=== PATIENT | female | born 1960 | race African-American/Black ===

== ENCOUNTER 2016-12-12 18:30 | Inpatient (IN) | payer OTHER ==
[2016-12-12 19:23] VITALS: BMI 18.6
--- NOTE | 2016-12-12 21:05 | HP ---
Admission [facility] Chief Complaint: C/O COCAINE DEPENDENCE SEEKING REHAB TXMENT Allergies/Adverse Reactions: Allergies Allergy/AdvReac Type Severity Reaction Status Date / Time No Known Allergies Allergy Verified 09/06/15 16:24 History of Present Illness: 56 Y.O. FEMALE WITH LONG H/O OF COCAINE DEPENDENCE ADMITTED TO REHAB. CLIENT IS KNOWN TO [facility]. LAST HERE OVER A YEAR AGO. SELF REFERRED. DENIES ANY SIGNIFICANT PERIOD OF CLEAN TIME. ELVATED B/P NOTED 206/108 REPEAT 197/100. STATES DID NOT TAKE HER MEDS TODAY. C/O MILD AMBROCIO. DENIES C.P., VISUALL DISTURBANCES, SOB AT PRESENT TIME.CLIENT SELF MEDICATED IN THE PRESENCE OF BILLING COORDINATOR WITH HER MEDS TO INCLUDE ANTIHYPERTENSIVES. WILL CONT TO MONITOR CLOSELY Exam Limitations: No Limitations - Ebola screening Have you traveled outside of the country in the last 21 days: No Have you had contact with anyone from an Ebola affected area: No Have you been sick,other than usual withdrawal symptoms: No Do you have a fever: No - Review of Systems Constitutional: Chills, Loss of Appetite, Malaise, Night Sweats, Changes in sleep, Unintentional Wgt. Loss EENT: reports: No Symptoms Reported Respiratory: reports: Other (H/O ASTHMA) Cardiac: reports: No Symptoms Reported GI: reports: Poor Appetite : reports: No Symptoms Reported Musculoskeletal: reports: Neck Pain Integumentary: reports: No Symptoms Reported Neuro: reports: No Symptoms reported Endocrine: reports: No Symptoms Reported Hematology: reports: No Symptoms Reported Psychiatric: reports: Anxious Other Systems: Reviewed and Negative Patient History - Patient Medical History Hx Anemia: No Hx Asthma: Yes (ALBUTEROL) Hx Chronic Obstructive Pulmonary Disease (COPD): No Hx Cancer: No Hx Cardiac Disorders: No Hx Congestive Heart Failure: No Hx Hypertension: Yes (ON MEDS) Hx Hypercholesterolemia: No Hx Pacemaker: No HX Cerebrovascular Accident: No Hx Seizures: No Hx Dementia: No Hx Diabetes: No Hx Gastrointestinal Disorders: No Hx Liver Disease: No Hx Genitourinary Disorders: No Hx Sexually Transmitted Disorders: No Hx Renal Disease (ESRD): No Hx Thyroid Disease: No Hx Human Immunodeficiency Virus (HIV): Yes (diagnosed 1997,NON COMPLAINT WITH MEDS, SHINGLES IN 2013) Hx Hepatitis C: No Hx Depression: Yes (NO MEDS) Hx Suicide Attempt: Yes (PRESENTLY DENIES) Hx Bipolar Disorder: No Hx Schizophrenia: No Other Medical History: DENIES - Patient Surgical History Past Surgical History: Yes Hx Neurologic Surgery: No Hx Cataract Extraction: No Hx Cardiac Surgery: No Hx Lung Surgery: No Hx Breast Surgery: Yes (Cyst removal on right breast 1979) Hx Breast Biopsy: No Hx Abdominal Surgery: No Hx Appendectomy: No Hx Cholecystectomy: No Hx Genitourinary Surgery: No Hx Section: No Hx Orthopedic Surgery: No Anesthesia Reaction: No - PPD History Previous Implant?: Yes Documented Results: Negative w/proof Implanted On Prior [facility] Admission?: Yes Date: 09/08/15 Results: 0mm PPD to be Administered?: Yes - Reproductive History Patient is a Female of Child Bearing Age (11 -55 yrs old): Yes Last Menstrual Period: 02/21/10 Patient : No ([facility] [place]) - Smoking Cessation Smoking history: Current every day smoker Have you smoked in the past 12 months: Yes Aproximately how many cigarettes per day: 10 Hx Chewing Tobacco Use: No Initiated information on smoking cessation: Yes 'Breaking Loose' booklet given: 12/12/16 - Substance & Tx. History Hx Alcohol Use: No Hx Substance Use: Yes Substance Use Type: Cocaine Hx Substance Use Treatment: Yes ([facility]) - Substances Abused CRACK/COCAINE Route: Smoking Frequency: Daily Amount used: $200 Age of first use: 21 Date of Last Use: 12/12/16 Family Disease History - Family Disease History Family Disease History: Other: Father (/ ALCOHOLISM), Mother (/ ALCOHOLISM) Admission Physical Exam S - Vital Signs Vital Signs: Vital Signs - 24 hr 12/12/16 19:19 Temperature 97.3 F L Pulse Rate 81 Respiratory 18 Rate Blood Pressure 206/108 - Physical General Appearance: Yes: Appropriately Dressed, Thin, Anxious HEENTM: Yes: EOMI, Normocephalic, CAROLA, Pharynx Normal, Other (EDENTULOUS) Respiratory: Yes: Chest Non-Tender, No Respiratory Distress, No Accessory Muscle Use, Wheezing Neck: Yes: No masses,lesions,Nodules, Supple, Trachea in good position Breast: Yes: Breast Exam Deferred Cardiology: Yes: Regular Rhythm, Regular Rate, S1, S2 Abdominal: Yes: Normal Bowel Sounds, Non Tender, Soft Genitourinary: Yes: Within Normal Limits Back: Yes: Normal Inspection Musculoskeletal: Yes: full range of Motion, Gait Steady Extremities: Yes: Normal Capillary Refill, Normal Inspection, Normal Range of Motion, Non-Tender Neurological: Yes: processing mgr II-XII NML intact, Fully Oriented, Alert, Motor Strength 5/5 Integumentary: Yes: Normal Color, Dry, Warm Lymphatic: Yes: Within Normal Limits - Diagnostic (1) Cocaine dependence Current Visit: Yes Status: Chronic Qualifiers: Substance use status: uncomplicated Qualified Code(s): F14.20 - Cocaine dependence, uncomplicated (2) HIV disease Current Visit: Yes Status: Chronic (3) HTN (hypertension) Current Visit: Yes Status: Chronic Qualifiers: Hypertension type: essential hypertension Qualified Code(s): I10 - Essential (primary) hypertension (4) Nicotine dependence Current Visit: Yes Status: Chronic Qualifiers: Nicotine product type: cigarettes Substance use status: uncomplicated Qualified Code(s): F17.210 - Nicotine dependence, cigarettes, uncomplicated (5) Asthma Current Visit: Yes Status: Chronic Cleared for Admission [facility] - Detox or Rehab Detox Regimen/Protocol: Not Applicable Claeared for Rehab Admission: Yes [facility] Breath Alcohol Content Breath Alcohol Content: 0 Urine Pregancy Test - Result Urine Test Results: Negative- NO Line Present Urine Drug Screen - Results Drug Screen Negative: No Urine Drug Screen Results: ANTONIO-Cocaine
[2016-12-12] MEDS ORDERED: NICOTINE POLACRILEX 2 MG GUM BUC PRN (21:20)
[2016-12-12] MEDS ORDERED: MENTHOL/PHENOL 1 EACH UD MM PRN (21:20)
[2016-12-12] MEDS ORDERED: MAGNESIUM CITRATE 300 ML BOTTLE PO PRN (21:20)
[2016-12-12] MEDS ORDERED: ACETAMINOPHEN 325 MG TABLET (FP) PO PRN (21:20)
[2016-12-12] MEDS ORDERED: guaiFENesin/D-METHORPHAN HB 10 ML UNIT-DOSE CUPS PO PRN (21:20)
[2016-12-12] MEDS ORDERED: hydrOXYzine PAMOATE 50 MG CAPSULE (FP) PO PRN (21:20)
[2016-12-12] MEDS ORDERED: MAGNESIUM HYDROX 2400MG/30ML ORAL SUSPENSION 30 ML CUP PO PRN (21:20)
[2016-12-12] MEDS ORDERED: MAG HYDROX/AL HYDROX/SIMETH 30 ML UNIT-DOSE CUP PO PRN (21:20)
[2016-12-12] MEDS ORDERED: P-EPHED 60MG/TRIPROLIDI 2.5MG TABLET PO PRN (21:20)
[2016-12-12] MEDS ORDERED: diphenhydrAMINE HCL 50 MG CAPSULE PO PRN (21:20)
[2016-12-12] MEDS ORDERED: IBUPROFEN 400 MG TABLET (FP) PO PRN (21:20)
[2016-12-12] MEDS ORDERED: LOPERAMIDE HCL 2 MG CAPSULE PO PRN (21:20)
[2016-12-12] MEDS ORDERED: ALBUTEROL SO4 6.7 GM HFA INHALER IH PRN (21:24)
[2016-12-12] MEDS ORDERED: TUBERCULIN PPD 5 TU/0.1ML VIAL ID ONE (22:56)
[2016-12-12] MEDS: NICOTINE 14 MG/24 HOURS TOPICAL PATCH TD SCH (23:25)
[2016-12-12] MEDS: THIAMINE HCL 100 MG TABLET (FP) PO SCH (23:28)
[2016-12-13] MEDS: ASPIRIN COATED 81 MG TABLET.EC PO SCH (09:06)
[2016-12-13] MEDS: DARUNAVIR ETHANOLATE 800 MG TAB PO SCH (09:06)
[2016-12-13] MEDS: PRENATAL VITAMINS W/ FOLIC ACID TABLET (FP) PO SCH (09:07)
[2016-12-13] MEDS: NIFEdipine E.R. 90 MG TABLET (FP) PO SCH (09:07)
[2016-12-13] MEDS: NICOTINE 14 MG/24 HOURS TOPICAL PATCH TD SCH (09:07)
[2016-12-13] MEDS: LISINOPRIL 20 MG TABLET (FP) PO SCH (09:07)
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
[2016-12-13 10:14] LABS: MCH 28.6 pg (25.7-33.7); MCHC 32.9 g/dl (32.0-36.0); MEAN CELL VOLUME 86.8 fl (80-96); MEAN PLT VOLUME 9.2 fl (7.5-11.1); PLATELET COUNT 232 K/MM3 (134-434); RDW 14.5 % (11.6-15.6); WHITE BLOOD COUNT 5.2 K/mm3 (4.0-10.0)
[2016-12-13] MEDS: EMTRICITABINE 200MG/TENOFOVIR 300MG PO SCH (10:15)
[2016-12-13] MEDS: CITALOPRAM HYDROBROMIDE 10 MG TABLET (FP) PO SCH (10:16)
[2016-12-13] MEDS: RITONAVIR 100 MG TABLET PO SCH (10:16)
[2016-12-13] MEDS: ATENOLOL 50 MG TABLET (FP) PO SCH (10:16)
[2016-12-13 10:51] LABS: ALBUMIN 3.5 g/dl (3.4-5.0); ANION GAP 8 (8-16); CALCIUM 8.8 mg/dL (8.5-10.1); CO2 29 mmol/L (21-32); GLUCOSE,RANDOM 85 mg/dL (74-106)
[2016-12-13 10:54] LABS: ALK PHOS 88 U/L (45-117); BILIRUBIN,TOTAL 0.5 mg/dL (0.2-1.0); CREATININE 0.6 mg/dL (0.55-1.02); SGOT/AST 11 U/L (15-37); SGPT/ALT 19 U/L (12-78); TOT PROT 7.6 g/dl (6.4-8.2)
[2016-12-13 14:28] LABS: URINE APPEARANCE CLEAR; URINE BILIRUBIN NEGATIVE (NEGATIVE); URINE COLOR LTYELLOW; URINE GLUCOSE (UA) NEGATIVE (NEGATIVE); URINE KETONE NEGATIVE (NEGATIVE); URINE LEUK ESTERASE NEGATIVE (NEGATIVE); URINE NITRITE NEGATIVE (NEGATIVE); URINE PROTEIN NEGATIVE (NEGATIVE); URINE UROBILINOGEN NEGATIVE E.U./dl (0.2-1.0)
[2016-12-13 14:29] LABS: URINE BLOOD 1+ (NEGATIVE)
[2016-12-13 14:33] LABS: URINE RBC 2 /hpf (0-3); URINE WBC 1 /hpf (3-5)
--- NOTE | 2016-12-13 15:52 | EKG ---
Test Reason : Blood Pressure : / mmHG Vent. Rate : 058 BPM Atrial Rate : 058 BPM P-R Int : 150 ms QRS Dur : 084 ms QT Int : 474 ms P-R-T Axes : 071 053 048 degrees QTc Int : 465 ms SINUS BRADYCARDIA POSSIBLE LEFT ATRIAL ENLARGEMENT SEPTAL INFARCT , AGE UNDETERMINED ABNORMAL ECG NO PREVIOUS ECGS AVAILABLE Confirmed by TIM OLEARY MD ([id number]) on 12/13/2016 3:51:28 PM Referred By: Confirmed By:TIM OLEARY MD
[2016-12-13] MEDS: QUEtiapine FUMARATE 100 MG TABLET (FP) PO SCH (21:14)
[2016-12-13] MEDS: THIAMINE HCL 100 MG TABLET (FP) PO SCH (21:14)
[2016-12-14] MEDS ORDERED: PT OWN MED DRAWER 7, Y5N ONE (09:29)
[2016-12-14] MEDS: EMTRICITABINE 200MG/TENOFOVIR 300MG PO SCH (09:54)
[2016-12-14] MEDS: RITONAVIR 100 MG TABLET PO SCH (09:54)
[2016-12-14] MEDS: PRENATAL VITAMINS W/ FOLIC ACID TABLET (FP) PO SCH (09:55)
[2016-12-14] MEDS: DARUNAVIR ETHANOLATE 800 MG TAB PO SCH (09:55)
[2016-12-14] MEDS: CITALOPRAM HYDROBROMIDE 10 MG TABLET (FP) PO SCH (09:56)
[2016-12-14] MEDS: ASPIRIN COATED 81 MG TABLET.EC PO SCH (09:56)
[2016-12-14] MEDS: LISINOPRIL 20 MG TABLET (FP) PO SCH (09:57)
[2016-12-14] MEDS: ATENOLOL 50 MG TABLET (FP) PO SCH (09:57)
[2016-12-14] MEDS: NIFEdipine E.R. 90 MG TABLET (FP) PO SCH (09:57)
[2016-12-14] MEDS: NICOTINE 14 MG/24 HOURS TOPICAL PATCH TD SCH (09:58)
[2016-12-14] MEDS ORDERED: POTASSIUM CHLORIDE TABS 20 MEQ TABLET.ER (FP) PO ONE (15:07)
[2016-12-14] MEDS: POTASSIUM CHLORIDE TABS 20 MEQ TABLET.ER (FP) PO SCH (21:31)
[2016-12-14] MEDS: THIAMINE HCL 100 MG TABLET (FP) PO SCH (21:31)
[2016-12-14] MEDS: QUEtiapine FUMARATE 100 MG TABLET (FP) PO SCH (21:32)
[2016-12-15] MEDS ORDERED: PT OWN MED DRAWER 7, Y5N ONE (09:09)
[2016-12-15] MEDS: EMTRICITABINE 200MG/TENOFOVIR 300MG PO SCH (09:38)
[2016-12-15] MEDS: RITONAVIR 100 MG TABLET PO SCH (09:38)
[2016-12-15] MEDS: DARUNAVIR ETHANOLATE 800 MG TAB PO SCH (09:38)
[2016-12-15] MEDS: POTASSIUM CHLORIDE TABS 20 MEQ TABLET.ER (FP) PO SCH ×2 (09:39→21:20)
[2016-12-15] MEDS: ATENOLOL 50 MG TABLET (FP) PO SCH (09:39)
[2016-12-15] MEDS: PRENATAL VITAMINS W/ FOLIC ACID TABLET (FP) PO SCH (09:39)
[2016-12-15] MEDS: ASPIRIN COATED 81 MG TABLET.EC PO SCH (09:39)
[2016-12-15] MEDS: NIFEdipine E.R. 90 MG TABLET (FP) PO SCH (09:39)
[2016-12-15] MEDS: CITALOPRAM HYDROBROMIDE 10 MG TABLET (FP) PO SCH (09:39)
[2016-12-15] MEDS: NICOTINE 14 MG/24 HOURS TOPICAL PATCH TD SCH (09:40)
[2016-12-15] MEDS: LISINOPRIL 20 MG TABLET (FP) PO SCH (09:40)
[2016-12-15] MEDS: THIAMINE HCL 100 MG TABLET (FP) PO SCH (21:19)
[2016-12-15] MEDS: QUEtiapine FUMARATE 100 MG TABLET (FP) PO SCH (21:19)
[2016-12-16] MEDS ORDERED: PT OWN MED DRAWER 7, Y5N ONE ×2 (08:55→23:21)
[2016-12-16] MEDS: CITALOPRAM HYDROBROMIDE 10 MG TABLET (FP) PO SCH (09:42)
[2016-12-16] MEDS: PRENATAL VITAMINS W/ FOLIC ACID TABLET (FP) PO SCH (09:42)
[2016-12-16] MEDS: NIFEdipine E.R. 90 MG TABLET (FP) PO SCH (09:42)
[2016-12-16] MEDS: POTASSIUM CHLORIDE TABS 20 MEQ TABLET.ER (FP) PO SCH ×2 (09:42→21:18)
[2016-12-16] MEDS: EMTRICITABINE 200MG/TENOFOVIR 300MG PO SCH (09:43)
[2016-12-16] MEDS: ATENOLOL 50 MG TABLET (FP) PO SCH (09:43)
[2016-12-16] MEDS: LISINOPRIL 20 MG TABLET (FP) PO SCH (09:43)
[2016-12-16] MEDS: ASPIRIN COATED 81 MG TABLET.EC PO SCH (09:43)
[2016-12-16] MEDS: DARUNAVIR ETHANOLATE 800 MG TAB PO SCH (09:43)
[2016-12-16] MEDS: RITONAVIR 100 MG TABLET PO SCH (09:43)
[2016-12-16] MEDS: NICOTINE 14 MG/24 HOURS TOPICAL PATCH TD SCH (09:44)
[2016-12-16] MEDS: THIAMINE HCL 100 MG TABLET (FP) PO SCH (21:18)
[2016-12-16] MEDS: QUEtiapine FUMARATE 100 MG TABLET (FP) PO SCH (21:18)
[2016-12-17] MEDS: CITALOPRAM HYDROBROMIDE 10 MG TABLET (FP) PO SCH (09:46)
[2016-12-17] MEDS: PRENATAL VITAMINS W/ FOLIC ACID TABLET (FP) PO SCH (09:46)
[2016-12-17] MEDS: ATENOLOL 50 MG TABLET (FP) PO SCH (09:46)
[2016-12-17] MEDS: LISINOPRIL 20 MG TABLET (FP) PO SCH (09:46)
[2016-12-17] MEDS: DARUNAVIR ETHANOLATE 800 MG TAB PO SCH (09:46)
[2016-12-17] MEDS: ASPIRIN COATED 81 MG TABLET.EC PO SCH (09:46)
[2016-12-17] MEDS: NIFEdipine E.R. 90 MG TABLET (FP) PO SCH (09:46)
[2016-12-17] MEDS: EMTRICITABINE 200MG/TENOFOVIR 300MG PO SCH (09:47)
[2016-12-17] MEDS: RITONAVIR 100 MG TABLET PO SCH (09:47)
[2016-12-17] MEDS: NICOTINE 14 MG/24 HOURS TOPICAL PATCH TD SCH (09:47)
[2016-12-17] MEDS: POTASSIUM CHLORIDE TABS 20 MEQ TABLET.ER (FP) PO SCH ×2 (09:49→21:17)
[2016-12-17] MEDS: THIAMINE HCL 100 MG TABLET (FP) PO SCH (21:17)
[2016-12-17] MEDS: QUEtiapine FUMARATE 100 MG TABLET (FP) PO SCH (21:17)
[2016-12-18] MEDS ORDERED: PT OWN MED DRAWER 7, Y5N ONE (08:26)
[2016-12-18] MEDS: EMTRICITABINE 200MG/TENOFOVIR 300MG PO SCH (10:20)
[2016-12-18] MEDS: PRENATAL VITAMINS W/ FOLIC ACID TABLET (FP) PO SCH (10:20)
[2016-12-18] MEDS: POTASSIUM CHLORIDE TABS 20 MEQ TABLET.ER (FP) PO SCH ×2 (10:20→21:12)
[2016-12-18] MEDS: DARUNAVIR ETHANOLATE 800 MG TAB PO SCH (10:20)
[2016-12-18] MEDS: RITONAVIR 100 MG TABLET PO SCH (10:20)
[2016-12-18] MEDS: NIFEdipine E.R. 90 MG TABLET (FP) PO SCH (10:20)
[2016-12-18] MEDS: ATENOLOL 50 MG TABLET (FP) PO SCH (10:21)
[2016-12-18] MEDS: ASPIRIN COATED 81 MG TABLET.EC PO SCH (10:21)
[2016-12-18] MEDS: CITALOPRAM HYDROBROMIDE 10 MG TABLET (FP) PO SCH (10:21)
[2016-12-18] MEDS: NICOTINE 14 MG/24 HOURS TOPICAL PATCH TD SCH (10:22)
[2016-12-18] MEDS: LISINOPRIL 20 MG TABLET (FP) PO SCH (10:22)
[2016-12-18] MEDS: THIAMINE HCL 100 MG TABLET (FP) PO SCH (21:12)
[2016-12-18] MEDS: QUEtiapine FUMARATE 100 MG TABLET (FP) PO SCH (21:12)
[2016-12-19] MEDS: DARUNAVIR ETHANOLATE 800 MG TAB PO SCH (10:06)
[2016-12-19] MEDS: ASPIRIN COATED 81 MG TABLET.EC PO SCH (10:06)
[2016-12-19] MEDS: CITALOPRAM HYDROBROMIDE 10 MG TABLET (FP) PO SCH (10:06)
[2016-12-19] MEDS: PRENATAL VITAMINS W/ FOLIC ACID TABLET (FP) PO SCH (10:06)
[2016-12-19] MEDS: ATENOLOL 50 MG TABLET (FP) PO SCH (10:07)
[2016-12-19] MEDS: EMTRICITABINE 200MG/TENOFOVIR 300MG PO SCH (10:07)
[2016-12-19] MEDS: RITONAVIR 100 MG TABLET PO SCH (10:07)
[2016-12-19] MEDS: POTASSIUM CHLORIDE TABS 20 MEQ TABLET.ER (FP) PO SCH ×2 (10:07→21:15)
[2016-12-19] MEDS: LISINOPRIL 20 MG TABLET (FP) PO SCH (10:07)
[2016-12-19] MEDS: NIFEdipine E.R. 90 MG TABLET (FP) PO SCH (10:07)
[2016-12-19] MEDS: NICOTINE 14 MG/24 HOURS TOPICAL PATCH TD SCH (10:07)
[2016-12-19] MEDS: THIAMINE HCL 100 MG TABLET (FP) PO SCH (21:15)
[2016-12-19] MEDS: QUEtiapine FUMARATE 100 MG TABLET (FP) PO SCH (21:15)
[2016-12-20 06:26] VITALS: TEMP 97.6
[2016-12-20] MEDS ORDERED: PT OWN MED DRAWER 7, Y5N ONE (08:34)
[2016-12-20] MEDS: DARUNAVIR ETHANOLATE 800 MG TAB PO SCH (09:59)
[2016-12-20] MEDS: POTASSIUM CHLORIDE TABS 20 MEQ TABLET.ER (FP) PO SCH (10:00)
[2016-12-20] MEDS: RITONAVIR 100 MG TABLET PO SCH (10:00)
[2016-12-20] MEDS: EMTRICITABINE 200MG/TENOFOVIR 300MG PO SCH (10:00)
[2016-12-20] MEDS: CITALOPRAM HYDROBROMIDE 10 MG TABLET (FP) PO SCH (10:00)
[2016-12-20] MEDS: ASPIRIN COATED 81 MG TABLET.EC PO SCH (10:00)
[2016-12-20] MEDS: NIFEdipine E.R. 90 MG TABLET (FP) PO SCH (10:01)
[2016-12-20] MEDS: LISINOPRIL 20 MG TABLET (FP) PO SCH (10:01)
[2016-12-20] MEDS: PRENATAL VITAMINS W/ FOLIC ACID TABLET (FP) PO SCH (10:01)
[2016-12-20] MEDS: ATENOLOL 50 MG TABLET (FP) PO SCH (10:01)
[2016-12-20] MEDS: NICOTINE 14 MG/24 HOURS TOPICAL PATCH TD SCH (10:01)
[2016-12-20 10:24] VITALS: BP 120/71; PULSE 76
--- NOTE | 2016-12-20 10:41 | PN ---
Psychiatric Progress Note Vital Signs: Vital Signs Period Temp Pulse Resp BP Sys/Young Pulse Ox Last 24 Hr 97.6 F 70-76 16-18 105-120/65-71 Date of Session: 12/20/16 Chief Complaint:: discharge visit HPI: Patient has addressed cannabis, cocaine, nicotine dependence comrbid MDD, severe with psychotic features. ROS: HIV+ dx in 1997, HTN, BA medically managed. Current Medications: Active Medications Generic Name Dose Route Start Last Admin Trade Name Freq PRN Reason Stop Dose Admin Acetaminophen 650 mg 12/12/16 21:20 Tylenol - PO Q4H PRN PAIN Al Hydroxide/Mg Hydroxide 30 ml 12/12/16 21:20 Mylanta Oral Suspension - PO Q6H PRN DYSPEPSIA Albuterol Sulfate 2 puff 12/12/16 21:24 Ventolin Hfa Inhaler - IH Q4H PRN SHORT OF BREATH/WHEEZING Aspirin 81 mg 12/13/16 10:00 12/20/16 10:00 Ecotrin - PO 81 mg DAILY CARLOS Administration Atenolol 50 mg 12/13/16 10:00 12/20/16 10:01 Tenormin - PO 50 mg DAILY CARLOS Administration Citalopram Hydrobromide 10 mg 12/13/16 10:00 12/20/16 10:00 Celexa - PO 10 mg DAILY CARLOS Administration Darunavir 800 mg 12/13/16 10:00 12/20/16 09:59 Prezista - PO 800 mg DAILY CARLOS Administration Diphenhydramine HCl 50 mg 12/12/16 21:20 12/17/16 21:17 Benadryl - PO 50 mg HSMR1 PRN Administration INSOMNIA Emtricitabine/Tenofovir 1 tab 12/13/16 10:00 12/20/16 10:00 Truvada PO 1 tab DAILY CARLOS Administration Eucalyptus/Menthol/Phenol/Sorbitol 1 each 12/12/16 21:20 Cepastat Lozenge - MM Q4H PRN SORE THROAT Guaifenesin 10 ml 12/12/16 21:20 Robitussin Dm - PO Q6H PRN COUGH Hydroxyzine Pamoate 50 mg 12/12/16 21:20 Vistaril - PO Q4H PRN AGITATION Ibuprofen 400 mg 12/12/16 21:20 Motrin - PO Q6H PRN SEVERE PAIN Lisinopril 40 mg 12/13/16 10:00 12/20/16 10:01 Prinivil PO 40 mg DAILY CARLOS Administration Loperamide HCl 4 mg 12/12/16 21:20 Imodium - PO Q6H PRN DIARRHEA Magnesium Citrate 300 ml 12/12/16 21:20 Citroma - PO Q48H PRN CONSTIPATION Magnesium Hydroxide 30 ml 12/12/16 21:20 12/15/16 06:15 Milk Of Magnesia - PO 30 ml DAILY PRN Administration CONSTIPATION Nicotine 14 mg 12/12/16 21:30 12/20/16 10:01 Nicoderm Patch - TD Not Given DAILY CARLOS Nicotine Polacrilex 2 mg 12/12/16 21:20 Nicorette Gum - BUC Q2H PRN NICOTINE REPLACEMENT RX Nifedipine 90 mg 12/13/16 10:00 12/20/16 10:01 Procardia Xl - PO 90 mg DAILY CARLOS Administration Potassium Chloride 20 meq 12/14/16 22:00 12/20/16 10:00 K-Dur - PO 20 meq BID CARLOS Administration Multivit/Folic Acid/Iron 1 tab 12/13/16 10:00 12/20/16 10:01 Vitamins (Sjr) - PO 1 tab DAILY CARLOS Administration Pseudoephedrine/Triprolidine 1 combo 12/12/16 21:20 Actifed - PO TID PRN NASAL CONGESTION Quetiapine Fumarate 100 mg 12/13/16 22:00 12/19/16 21:15 Seroquel - PO 100 mg HS CARLOS Administration Ritonavir 100 mg 12/13/16 10:00 12/20/16 10:00 Norvir - PO 100 mg DAILY CARLOS Administration Thiamine HCl 100 mg 12/12/16 22:00 12/19/16 21:15 Vitamin B1 - PO 100 mg HS CARLOS Administration Current Side Effect: No Lab tests ordered: No Lab tests reviewed: Yes Provider note:: Patient has completed today his treatment and met her treatment goals, will continue to address her issues at [facility]. She focused on importance of changing attitudes and ways she plans to utilize supports to mainatin recovery. Patient reports that her current medications ( seroquel and lexapro) effective, she feels better, no side-effects reported, scripts e-transferred to her pharmacy. Patient is stable for discharge. Total face to face time:: 35 Mental Status Exam - Mental Status Exam Alert and Oriented to: Time, Place, Person Cognitive Function: Good Patient Appearance: Well Groomed Mood: Hopeful Affect: Appropriate, Mood Congruent Patient Behavior: Appropriate, Cooperative Speech Pattern: Clear, Appropriate Voice Loudness: Normal Thought Process: Intact, Goal Oriented Thought Disorder: Not Present Hallucinations: Denies Suicidal Ideation: Denies Homicidal Ideation: Denies Insight/Judgement: Fair Sleep: Fair Appetite: Good Muscle strength/Tone: Normal Gait/Station: Normal Psychiatric Treatment Plan - Problem List (1) Asthma Current Visit: Yes (2) Cannabis dependence Current Visit: Yes (3) Cocaine dependence Current Visit: Yes Qualifiers: Substance use status: uncomplicated Qualified Code(s): F14.20 - Cocaine dependence, uncomplicated (4) HIV disease Current Visit: Yes (5) HTN (hypertension) Current Visit: Yes Qualifiers: Hypertension type: essential hypertension Qualified Code(s): I10 - Essential (primary) hypertension (6) MDD (major depressive disorder) Current Visit: Yes (7) Nicotine dependence Current Visit: Yes Qualifiers: Nicotine product type: cigarettes Substance use status: uncomplicated Qualified Code(s): F17.210 - Nicotine dependence, cigarettes, uncomplicated (8) Major depressive disorder, recurrent, severe with psychotic features Current Visit: No
== END 2016-12-20 14:30 | disposition home or self-care (01) | DRG 772 ==
LOC: YASAS 18:30 → Y3E 22:22
PROVIDERS: ADMIT Psychiatry & Neurology Psychiatry; ATTEND Psychiatry & Neurology Psychiatry
PROC: HZ42ZZZ Group Counseling for Substance Abuse Treatment, Cognitive-Behavioral (ICD-10-PCS; principal; 2016-12-20)
DX: F14.20 Cocaine dependence, uncomplicated (principal); F12.20 Cannabis dependence, uncomplicated; F17.210 Nicotine dependence, cigarettes, uncomplicated; F33.3 Major depressive disorder, recurrent, severe with psychotic symptoms; I10 Essential (primary) hypertension; J45.909 Unspecified asthma, uncomplicated; Z21 Asymptomatic human immunodeficiency virus [HIV] infection status
CPT/HCPCS: 36415; 80053; 81003; 81015; 85027; 86593; 93005; 93010

== ENCOUNTER 2017-03-27 17:07 | Inpatient (IN) | payer OTHER ==
[2017-03-27 19:59] VITALS: BMI 23.8
--- NOTE | 2017-03-27 20:47 | HP ---
CIWA Score - CIWA Score Nausea/Vomitin-Mild Nausea/No Vomiting Muscle Tremors: 4-Moderate,w/Arms Extend Anxiety: 4-Mod. Anxious/Guarded Agitation: 4-Moderately Restless Paroxysmal Sweats: 1-Minimal Palms Moist Orientation: 1-Uncertain about Date Tacttile Disturbances: 0-None Auditory Disturbances: 0-None Visual Disturbances: 0-None Headache: 0-None Present CIWA-Ar Total Score: 15 Admission ROS S - HPI Chief Complaint: withdrawal sx Allergies/Adverse Reactions: Allergies Allergy/AdvReac Type Severity Reaction Status Date / Time No Known Allergies Allergy Verified 12/12/16 21:38 History of Present Illness: 56 years old female with long history of alcohol marijuana nicotine cocain dependence, has hiv hypertension asthma and depression is admitted to detox Exam Limitations: No Limitations - Ebola screening Have you traveled outside of the country in the last 21 days: No Have you had contact with anyone from an Ebola affected area: No Have you been sick,other than usual withdrawal symptoms: No Do you have a fever: No - Review of Systems Constitutional: Changes in sleep, Weight Stable EENT: reports: Dental Problems (no teeth) Respiratory: reports: SOB with Exertion Cardiac: reports: No Symptoms Reported GI: reports: Nausea, Poor Appetite, Poor Fluid Intake, Indigestion, Abdominal cramping : reports: No Symptoms Reported Musculoskeletal: reports: Back Pain, Joint Pain, Muscle Pain, Neck Pain Integumentary: reports: No Symptoms Reported Neuro: reports: Tremors Endocrine: reports: No Symptoms Reported Hematology: reports: No Symptoms Reported Psychiatric: reports: Judgement Intact, Anxious, Depressed Other Systems: Reviewed and Negative Patient History - Patient Medical History Hx Anemia: No Hx Asthma: Yes Hx Chronic Obstructive Pulmonary Disease (COPD): No Hx Cancer: No Hx Cardiac Disorders: No Hx Congestive Heart Failure: No Hx Hypertension: Yes (ON MEDICATION) Hx Hypercholesterolemia: No Hx Pacemaker: No HX Cerebrovascular Accident: No Hx Seizures: No Hx Dementia: No Hx Diabetes: No Hx Gastrointestinal Disorders: Yes Hx Liver Disease: No Hx Genitourinary Disorders: No Hx Sexually Transmitted Disorders: Yes (HIV) Hx Renal Disease (ESRD): No Hx Thyroid Disease: No Hx Human Immunodeficiency Virus (HIV): Yes (diagnosed 1997,NON COMPLAINT WITH MEDS, SHINGLES IN 2013) Hx Hepatitis C: No Hx Depression: Yes Hx Suicide Attempt: No Hx Bipolar Disorder: No Hx Schizophrenia: No - Patient Surgical History Past Surgical History: Yes Hx Neurologic Surgery: No Hx Cataract Extraction: No Hx Cardiac Surgery: No Hx Lung Surgery: No Hx Breast Surgery: Yes (Cyst removal on right breast 1979) Hx Breast Biopsy: No Hx Abdominal Surgery: No Hx Appendectomy: No Hx Cholecystectomy: No Hx Genitourinary Surgery: No Hx Section: No Hx Orthopedic Surgery: No Hx Hysterectomy: No Anesthesia Reaction: No - PPD History Previous Implant?: Yes Documented Results: Negative w/proof Implanted On Prior [facility] Admission?: Yes Date: 09/08/15 Results: 0mm PPD to be Administered?: Yes - Reproductive History Patient is a Female of Child Bearing Age (11 -55 yrs old): Yes Last Menstrual Period: 03/27/10 Patient : No - Smoking Cessation Smoking history: Current every day smoker Have you smoked in the past 12 months: Yes Aproximately how many cigarettes per day: 10 Cigars Per Day: 0 Hx Chewing Tobacco Use: No Initiated information on smoking cessation: Yes 'Breaking Loose' booklet given: 03/27/17 - Substance & Tx. History Hx Alcohol Use: Yes Hx Substance Use: Yes Substance Use Type: Alcohol, Cocaine, Marijuana Hx Substance Use Treatment: Yes (12/2016 [facility]) - Substances Abused Alcohol Route: Oral Frequency: Daily Amount used: pint volka Age of first use: 18 Date of Last Use: 03/27/17 Family Disease History - Family Disease History Family Disease History: Other: Father (/ ALCOHOLISM), Mother (/ ALCOHOLISM) Admission Physical Exam S - Vital Signs Vital Signs: Vital Signs - 24 hr 03/27/17 19:49 Temperature 99.2 F Pulse Rate 97 H Respiratory 18 Rate Blood Pressure 190/100 - Physical General Appearance: Yes: Appropriately Dressed, Thin, Tremorous, Irritable, Sweating, Anxious HEENTM: Yes: Hearing grossly Normal, Normal ENT Inspection, Normocephalic, Normal Voice Respiratory: Yes: Chest Non-Tender, Normal Breath Sounds, No Respiratory Distress, No Accessory Muscle Use Neck: Yes: Supple, Trachea in good position Breast: Yes: Breasts Symetrical Cardiology: Yes: Regular Rhythm, Regular Rate, S1, S2 Abdominal: Yes: Non Tender, Soft, Increased Bowel Sounds Genitourinary: Yes: Within Normal Limits Back: Yes: Normal Inspection Musculoskeletal: Yes: full range of Motion, Gait Steady, Back pain, Muscle Pain Extremities: Yes: Normal Range of Motion, Non-Tender, Tremors Neurological: Yes: Alert, Motor Strength 5/5, Normal Response, Depressed Affect Integumentary: Yes: Warm Lymphatic: Yes: Within Normal Limits - Diagnostic (1) Asthma Current Visit: Yes Status: Chronic Qualifiers: Asthma severity: mild Asthma persistence: intermittent Asthma complication type: with status asthmaticus Qualified Code(s): J45.22 - Mild intermittent asthma with status asthmaticus; J45.22 - Mild intermittent asthma with status asthmaticus; J45.22 - Mild intermittent asthma with status asthmaticus (2) HIV disease Current Visit: Yes Status: Chronic (3) HTN (hypertension) Current Visit: Yes Status: Chronic Qualifiers: Hypertension type: essential hypertension Qualified Code(s): I10 - Essential (primary) hypertension; I10 - Essential (primary) hypertension; I10 - Essential (primary) hypertension (4) Nicotine dependence Current Visit: Yes Status: Acute Qualifiers: Nicotine product type: cigarettes Substance use status: in withdrawal Qualified Code(s): F17.213 - Nicotine dependence, cigarettes, with withdrawal; F17.213 - Nicotine dependence, cigarettes, with withdrawal (5) Alcohol dependence with uncomplicated withdrawal Current Visit: Yes Status: Acute (6) GERD (gastroesophageal reflux disease) Current Visit: Yes Status: Chronic Qualifiers: Esophagitis presence: without esophagitis Qualified Code(s): K21.9 - Gastro-esophageal reflux disease without esophagitis; K21.9 - Gastro- esophageal reflux disease without esophagitis; K21.9 - Gastro-esophageal reflux disease without esophagitis Cleared for Admission S - Detox or Rehab [facility] Level of Care: Medically Managed Detox Regimen/Protocol: Librium [facility] Breath Alcohol Content Breath Alcohol Content: 0 Urine Pregancy Test - Result Urine Test Results: Negative- NO Line Present Urine Drug Screen - Control Is Test Valid: Yes - Results Drug Screen Negative: No Urine Drug Screen Results: THC-Marijuana, ANTONIO-Cocaine
[2017-03-27] MEDS ORDERED: MAG HYDROX/AL HYDROX/SIMETH 30 ML UNIT-DOSE CUP PO PRN (20:49)
[2017-03-27] MEDS ORDERED: MAGNESIUM CITRATE 300 ML BOTTLE PO PRN (20:49)
[2017-03-27] MEDS ORDERED: MENTHOL/PHENOL 1 EACH UD MM PRN (20:49)
[2017-03-27] MEDS ORDERED: ACETAMINOPHEN 325 MG TABLET (FP) PO PRN (20:49)
[2017-03-27] MEDS ORDERED: IBUPROFEN 400 MG TABLET (FP) PO PRN (20:49)
[2017-03-27] MEDS ORDERED: guaiFENesin/D-METHORPHAN HB 10 ML UNIT-DOSE CUPS PO PRN (20:49)
[2017-03-27] MEDS ORDERED: P-EPHED 60MG/TRIPROLIDI 2.5MG TABLET PO PRN (20:49)
[2017-03-27] MEDS ORDERED: MAGNESIUM HYDROX 2400MG/30ML ORAL SUSPENSION 30 ML CUP PO PRN (20:49)
[2017-03-27] MEDS ORDERED: chlordiazePOXIDE HCL 25 MG CAPSULE PO PRN (20:49)
[2017-03-27] MEDS ORDERED: LOPERAMIDE HCL 2 MG CAPSULE PO PRN (20:49)
[2017-03-27] MEDS ORDERED: diphenhydrAMINE HCL 50 MG CAPSULE PO PRN (20:49)
[2017-03-27] MEDS: LISINOPRIL 20 MG TABLET (FP) PO SCH (23:30)
[2017-03-27] MEDS: THIAMINE HCL 100 MG TABLET (FP) PO SCH (23:30)
[2017-03-27] MEDS: RANITIDINE HCL 150 MG TABLET (FP) PO SCH (23:30)
[2017-03-27] MEDS: chlordiazePOXIDE HCL 25 MG CAPSULE PO SCH (23:30)
[2017-03-27] MEDS: ATENOLOL 50 MG TABLET (FP) PO SCH (23:43)
[2017-03-27] MEDS: NIFEdipine E.R. 90 MG TABLET (FP) PO SCH (23:43)
[2017-03-28 00:01] LABS: URINE APPEARANCE SLCLOUDY; URINE BILIRUBIN NEGATIVE (NEGATIVE); URINE BLOOD 1+ (NEGATIVE); URINE COLOR DKYELLOW; URINE GLUCOSE (UA) NEGATIVE (NEGATIVE); URINE KETONE NEGATIVE (NEGATIVE); URINE LEUK ESTERASE NEGATIVE (NEGATIVE); URINE NITRITE NEGATIVE (NEGATIVE)
[2017-03-28 00:03] LABS: URINE PROTEIN 1+ (NEGATIVE)
[2017-03-28 00:05] LABS: URINE BACTERIA RARE /hpf (NONE SEEN); URINE MUCUS RARE; URINE RBC 15 /hpf (0-3); URINE WBC 3 /hpf (3-5)
[2017-03-28] MEDS: chlordiazePOXIDE HCL 25 MG CAPSULE PO SCH ×4 (05:19→22:46)
[2017-03-28 10:08] LABS: MCH 28.6 pg (25.7-33.7); MCHC 32.4 g/dl (32.0-36.0); MEAN CELL VOLUME 88.3 fl (80-96); MEAN PLT VOLUME 9.5 fl (7.5-11.1); PLATELET COUNT 205 K/MM3 (134-434); RDW 14.3 % (11.6-15.6); WHITE BLOOD COUNT 5.3 K/mm3 (4.0-10.0)
[2017-03-28] MEDS: ASPIRIN 81 MG CHEWABLE TABLETS PO SCH (10:18)
[2017-03-28] MEDS: RANITIDINE HCL 150 MG TABLET (FP) PO SCH ×2 (10:18→22:26)
[2017-03-28] MEDS: LISINOPRIL 20 MG TABLET (FP) PO SCH (10:18)
[2017-03-28] MEDS: CITALOPRAM HYDROBROMIDE 10 MG TABLET (FP) PO SCH (10:20)
[2017-03-28] MEDS: PRENATAL VITAMINS W/ FOLIC ACID TABLET (FP) PO SCH (10:20)
--- NOTE | 2017-03-28 10:24 | PN ---
[facility] CIWA - CIWA Score Nausea/Vomitin Muscle Tremors: 3 Anxiety: 3 Agitation: 2 Paroxysmal Sweats: 1-Minimal Palms Moist Orientation: 0-Oriented Tacttile Disturbances: 1-Very Mild Itch/Numbness Auditory Disturbances: 1-Very Mild Visual Disturbances: 1-Very Mild Sensitivity Headache: 2-Mild CIWA-Ar Total Score: 17 S Progress Note (SOAP) Subjective: ALERT,IRRITABLE,ANXIOUS,INTERRUPTED SLEEP,TREMOR INTERRUPTED Objective: 03/28/17 10:33 Vital Signs Temperature 97.9 F 03/28/17 10:07 Pulse Rate 71 03/28/17 10:07 Respiratory Rate 16 03/28/17 10:07 Blood Pressure 124/75 03/28/17 10:07 O2 Sat by Pulse Oximetry (%) EKG NSR NO CHEST PAIN,NO SOB,NO DIZZINESS Laboratory Last Values WBC 5.3 K/mm3 (4.0-10.0) 03/28/17 07:00 RBC 4.55 M/mm3 (3.60-5.2) 03/28/17 07:00 Hgb 13.0 GM/dL (10.7-15.3) 03/28/17 07:00 Hct 40.1 % (32.4-45.2) 03/28/17 07:00 MCV 88.3 fl (80-96) 03/28/17 07:00 MCH 28.6 pg (25.7-33.7) 03/28/17 07:00 MCHC 32.4 g/dl (32.0-36.0) 03/28/17 07:00 RDW 14.3 % (11.6-15.6) 03/28/17 07:00 Plt Count 205 K/MM3 (134-434) 03/28/17 07:00 MPV 9.5 fl (7.5-11.1) 03/28/17 07:00 Urine Color Dkyellow 03/27/17 23:45 Urine Appearance Slcloudy 03/27/17 23:45 Urine pH 5.0 (5.0-8.0) D 03/27/17 23:45 Ur Specific [place] >= 1.030 (1.005-1.025) H 03/27/17 23:45 Urine Protein 1+ (NEGATIVE) H 03/27/17 23:45 Urine Glucose (UA) Negative (NEGATIVE) 03/27/17 23:45 Urine Ketones Negative (NEGATIVE) 03/27/17 23:45 Urine Blood 1+ (NEGATIVE) H 03/27/17 23:45 Urine Nitrite Negative (NEGATIVE) 03/27/17 23:45 Urine Bilirubin Negative (NEGATIVE) 03/27/17 23:45 Urine Urobilinogen 2.0 mg/dL (0.2-1.0) H 03/27/17 23:45 Urine RBC 15 /hpf (0-3) 03/27/17 23:45 Urine WBC 3 /hpf (3-5) 03/27/17 23:45 Ur Epithelial Cells Rare /hpf (FEW) 03/27/17 23:45 Urine Bacteria Rare /hpf (NONE SEEN) 03/27/17 23:45 Urine Mucus Rare 03/27/17 23:45 LABS PENDING Assessment: 03/28/17 10:36 WITHDRAWAL SYMPTOM Plan: CONTINUE DETOX
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
[2017-03-28 11:20] LABS: ALBUMIN 3.2 g/dl (3.4-5.0); ALK PHOS 88 U/L (45-117); ANION GAP 10 (8-16); BILIRUBIN,TOTAL 0.5 mg/dL (0.2-1.0); CALCIUM 8.9 mg/dL (8.5-10.1); CO2 26 mmol/L (21-32); CREATININE 0.7 mg/dL (0.55-1.02); GLUCOSE,RANDOM 96 mg/dL (74-106); SGOT/AST 11 U/L (15-37); SGPT/ALT 17 U/L (12-78); TOT PROT 7.8 g/dl (6.4-8.2)
[2017-03-28] MEDS: NIFEdipine E.R. 90 MG TABLET (FP) PO SCH (12:07)
[2017-03-28] MEDS: ATENOLOL 50 MG TABLET (FP) PO SCH (12:08)
[2017-03-28] MEDS: RITONAVIR 100 MG TABLET PO SCH (13:25)
[2017-03-28] MEDS: EMTRICITABINE 200MG/TENOFOVIR 300MG PO SCH (13:25)
[2017-03-28] MEDS: DARUNAVIR ETHANOLATE 800 MG TAB PO SCH (13:27)
--- NOTE | 2017-03-28 14:22 | EKG ---
Test Reason : Blood Pressure : / mmHG Vent. Rate : 078 BPM Atrial Rate : 078 BPM P-R Int : 144 ms QRS Dur : 094 ms QT Int : 408 ms P-R-T Axes : 056 046 038 degrees QTc Int : 465 ms NORMAL SINUS RHYTHM POSSIBLE LEFT ATRIAL ENLARGEMENT ANTEROSEPTAL INFARCT (CITED ON OR BEFORE 12-DEC-2016) ABNORMAL ECG WHEN COMPARED WITH ECG OF 12-DEC-2016 22:33, QUESTIONABLE CHANGE IN INITIAL FORCES OF ANTERIOR LEADS Confirmed by TIM OLEARY MD ([id number]) on 03/28/2017 2:21:32 PM Referred By: Confirmed By:TIM OLEARY MD
[2017-03-28] MEDS: THIAMINE HCL 100 MG TABLET (FP) PO SCH (22:26)
[2017-03-28] MEDS: QUEtiapine FUMARATE 100 MG TABLET (FP) PO SCH (22:27)
[2017-03-29] MEDS: chlordiazePOXIDE HCL 25 MG CAPSULE PO SCH ×3 (06:04→18:43)
[2017-03-29] MEDS: ASPIRIN 81 MG CHEWABLE TABLETS PO SCH (10:33)
[2017-03-29] MEDS: EMTRICITABINE 200MG/TENOFOVIR 300MG PO SCH (10:34)
[2017-03-29] MEDS: DARUNAVIR ETHANOLATE 800 MG TAB PO SCH (10:34)
[2017-03-29] MEDS: RITONAVIR 100 MG TABLET PO SCH (10:35)
[2017-03-29] MEDS: NIFEdipine E.R. 90 MG TABLET (FP) PO SCH (10:35)
[2017-03-29] MEDS: LISINOPRIL 20 MG TABLET (FP) PO SCH (10:35)
[2017-03-29] MEDS: ATENOLOL 50 MG TABLET (FP) PO SCH (10:35)
[2017-03-29] MEDS: RANITIDINE HCL 150 MG TABLET (FP) PO SCH ×2 (10:36→22:34)
[2017-03-29] MEDS: PRENATAL VITAMINS W/ FOLIC ACID TABLET (FP) PO SCH (10:36)
[2017-03-29] MEDS: CITALOPRAM HYDROBROMIDE 10 MG TABLET (FP) PO SCH (10:36)
--- NOTE | 2017-03-29 10:48 | PN ---
[facility] CIWA - CIWA Score Nausea/Vomitin Muscle Tremors: 3 Anxiety: 3 Agitation: 2 Paroxysmal Sweats: 1-Minimal Palms Moist Orientation: 0-Oriented Tacttile Disturbances: 1-Very Mild Itch/Numbness Auditory Disturbances: 1-Very Mild Visual Disturbances: 1-Very Mild Sensitivity Headache: 2-Mild CIWA-Ar Total Score: 17 BHS Progress Note (SOAP) Subjective: alert,irritable,anxious,interrupted sleet,tremor Objective: 03/29/17 10:47 Vital Signs Temperature 98.4 F 03/29/17 10:27 Pulse Rate 78 03/29/17 10:27 Respiratory Rate 16 03/29/17 10:27 Blood Pressure 114/72 03/29/17 10:27 O2 Sat by Pulse Oximetry (%) Laboratory Last Values WBC 5.3 K/mm3 (4.0-10.0) 03/28/17 07:00 RBC 4.55 M/mm3 (3.60-5.2) 03/28/17 07:00 Hgb 13.0 GM/dL (10.7-15.3) 03/28/17 07:00 Hct 40.1 % (32.4-45.2) 03/28/17 07:00 MCV 88.3 fl (80-96) 03/28/17 07:00 MCH 28.6 pg (25.7-33.7) 03/28/17 07:00 MCHC 32.4 g/dl (32.0-36.0) 03/28/17 07:00 RDW 14.3 % (11.6-15.6) 03/28/17 07:00 Plt Count 205 K/MM3 (134-434) 03/28/17 07:00 MPV 9.5 fl (7.5-11.1) 03/28/17 07:00 Sodium 142 mmol/L (136-145) 03/28/17 07:00 Potassium 3.6 mmol/L (3.5-5.1) 03/28/17 07:00 Chloride 106 mmol/L (98-107) 03/28/17 07:00 Carbon Dioxide 26 mmol/L (21-32) 03/28/17 07:00 Anion Gap 10 (8-16) 03/28/17 07:00 BUN 13 mg/dL (7-18) 03/28/17 07:00 Creatinine 0.7 mg/dL (0.55-1.02) 03/28/17 07:00 Creat Clearance w eGFR > 60 (>60) 03/28/17 07:00 Random Glucose 96 mg/dL (74-106) 03/28/17 07:00 Calcium 8.9 mg/dL (8.5-10.1) 03/28/17 07:00 Total Bilirubin 0.5 mg/dL (0.2-1.0) 03/28/17 07:00 AST 11 U/L (15-37) L 03/28/17 07:00 ALT 17 U/L (12-78) 03/28/17 07:00 Alkaline Phosphatase 88 U/L (45-117) 03/28/17 07:00 Total Protein 7.8 g/dl (6.4-8.2) 03/28/17 07:00 Albumin 3.2 g/dl (3.4-5.0) L 03/28/17 07:00 Urine Color Dkyellow 03/27/17 23:45 Urine Appearance Slcloudy 03/27/17 23:45 Urine pH 5.0 (5.0-8.0) D 03/27/17 23:45 Ur Specific [place] >= 1.030 (1.005-1.025) H 03/27/17 23:45 Urine Protein 1+ (NEGATIVE) H 03/27/17 23:45 Urine Glucose (UA) Negative (NEGATIVE) 03/27/17 23:45 Urine Ketones Negative (NEGATIVE) 03/27/17 23:45 Urine Blood 1+ (NEGATIVE) H 03/27/17 23:45 Urine Nitrite Negative (NEGATIVE) 03/27/17 23:45 Urine Bilirubin Negative (NEGATIVE) 03/27/17 23:45 Urine Urobilinogen 2.0 mg/dL (0.2-1.0) H 03/27/17 23:45 Urine RBC 15 /hpf (0-3) 03/27/17 23:45 Urine WBC 3 /hpf (3-5) 03/27/17 23:45 Ur Epithelial Cells Rare /hpf (FEW) 03/27/17 23:45 Urine Bacteria Rare /hpf (NONE SEEN) 03/27/17 23:45 Urine Mucus Rare 03/27/17 23:45 RPR Titer Nonreactive (NONREACTIVE) 03/28/17 07:00 HIV 1&2 Antibody Screen Cancelled 03/28/17 07:00 HIV P24 Antigen Cancelled 03/28/17 07:00 Assessment: 03/29/17 10:47 withdrawal symptom Plan: continue detox
[2017-03-29] MEDS: THIAMINE HCL 100 MG TABLET (FP) PO SCH (22:34)
[2017-03-29] MEDS: QUEtiapine FUMARATE 100 MG TABLET (FP) PO SCH (22:34)
[2017-03-29] MEDS: chlordiazePOXIDE 5 MG CAPSULE PO SCH (22:36)
[2017-03-30] MEDS: chlordiazePOXIDE 5 MG CAPSULE PO SCH ×3 (06:35→17:35)
[2017-03-30] MEDS: ASPIRIN 81 MG CHEWABLE TABLETS PO SCH (10:42)
[2017-03-30] MEDS: DARUNAVIR ETHANOLATE 800 MG TAB PO SCH (10:43)
[2017-03-30] MEDS: CITALOPRAM HYDROBROMIDE 10 MG TABLET (FP) PO SCH (10:43)
[2017-03-30] MEDS: ATENOLOL 50 MG TABLET (FP) PO SCH (10:43)
[2017-03-30] MEDS: RANITIDINE HCL 150 MG TABLET (FP) PO SCH ×2 (10:43→22:15)
[2017-03-30] MEDS: PRENATAL VITAMINS W/ FOLIC ACID TABLET (FP) PO SCH (10:43)
[2017-03-30] MEDS: NIFEdipine E.R. 90 MG TABLET (FP) PO SCH (10:43)
[2017-03-30] MEDS: EMTRICITABINE 200MG/TENOFOVIR 300MG PO SCH (10:44)
[2017-03-30] MEDS: LISINOPRIL 20 MG TABLET (FP) PO SCH (10:45)
[2017-03-30] MEDS: RITONAVIR 100 MG TABLET PO SCH (10:45)
--- NOTE | 2017-03-30 16:50 | PN ---
BHS Progress Note (SOAP) Subjective: Sweating,interrupted sleep,restless Objective: 03/30/17 16:49 Vital Signs - 8 hr 03/30/17 03/30/17 10:00 13:51 Temperature 96.4 F L 97.7 F Pulse Rate 83 88 Respiratory 18 16 Rate Blood Pressure 124/83 137/76 Laboratory Tests 03/27/17 03/28/17 03/28/17 23:45 07:00 07:00 WBC 5.3 RBC 4.55 Hgb 13.0 Hct 40.1 MCV 88.3 MCH 28.6 MCHC 32.4 RDW 14.3 Plt Count 205 MPV 9.5 Sodium 142 Potassium 3.6 Chloride 106 Carbon Dioxide 26 Anion Gap 10 BUN 13 Creatinine 0.7 Creat Clearance w eGFR > 60 Random Glucose 96 Calcium 8.9 Total Bilirubin 0.5 AST 11 L ALT 17 Alkaline Phosphatase 88 Total Protein 7.8 Albumin 3.2 L Urine Color Dkyellow Urine Appearance Slcloudy Urine pH 5.0 D Ur Specific [place] >= 1.030 H Urine Protein 1+ H Urine Glucose (UA) Negative Urine Ketones Negative Urine Blood 1+ H Urine Nitrite Negative Urine Bilirubin Negative Urine Urobilinogen 2.0 H Urine RBC 15 Urine WBC 3 Ur Epithelial Cells Rare Urine Bacteria Rare Urine Mucus Rare RPR Titer HIV 1&2 Antibody Screen HIV P24 Antigen 03/28/17 03/28/17 07:00 07:00 WBC RBC Hgb Hct MCV MCH MCHC RDW Plt Count MPV Sodium Potassium Chloride Carbon Dioxide Anion Gap BUN Creatinine Creat Clearance w eGFR Random Glucose Calcium Total Bilirubin AST ALT Alkaline Phosphatase Total Protein Albumin Urine Color Urine Appearance Urine pH Ur Specific [place] Urine Protein Urine Glucose (UA) Urine Ketones Urine Blood Urine Nitrite Urine Bilirubin Urine Urobilinogen Urine RBC Urine WBC Ur Epithelial Cells Urine Bacteria Urine Mucus RPR Titer Nonreactive HIV 1&2 Antibody Screen Cancelled HIV P24 Antigen Cancelled labs noted Assessment: 03/30/17 16:49 Withdrawal sx. Plan: Continue detox
[2017-03-30] MEDS: THIAMINE HCL 100 MG TABLET (FP) PO SCH (22:15)
[2017-03-30] MEDS: QUEtiapine FUMARATE 100 MG TABLET (FP) PO SCH (22:15)
[2017-03-30] MEDS: chlordiazePOXIDE HCL 10 MG CAPSULE PO SCH (22:15)
[2017-03-31] MEDS: chlordiazePOXIDE HCL 10 MG CAPSULE PO SCH (05:36)
[2017-03-31] MEDS ORDERED: METHADONE HCL 10 MG TABLET PO ONE (09:12)
[2017-03-31] MEDS: LISINOPRIL 20 MG TABLET (FP) PO SCH (09:20)
[2017-03-31] MEDS: EMTRICITABINE 200MG/TENOFOVIR 300MG PO SCH (09:20)
[2017-03-31] MEDS: ASPIRIN 81 MG CHEWABLE TABLETS PO SCH (09:20)
[2017-03-31] MEDS: CITALOPRAM HYDROBROMIDE 10 MG TABLET (FP) PO SCH (09:20)
[2017-03-31] MEDS: ATENOLOL 50 MG TABLET (FP) PO SCH (09:20)
[2017-03-31] MEDS: RANITIDINE HCL 150 MG TABLET (FP) PO SCH (09:20)
--- NOTE | 2017-03-31 09:22 | DS ---
[facility] Detox Discharge Summary Admission Date: 03/27/17 FOLLOW UP WITH [facility] CARE [facility] ARR[facility] Discharge Date: 03/31/17 - History Present History: Alcohol Dependence Additional Comments: FOLLOW UP WITH AFTER CARE PROGRAM ARRANGEMENT Pertinent Past History: GERD HIV HYPERTENSION ASTHMA NICOTINE DEPENDENCE WEIGHT LOSS DEPRESSION - Physical Exam Results Vital Signs: Vital Signs Temperature 96.3 F L 03/31/17 06:00 Pulse Rate 80 03/31/17 06:00 Respiratory Rate 18 03/31/17 06:00 Blood Pressure 150/90 03/31/17 06:00 O2 Sat by Pulse Oximetry (%) Pertinent Admission Physical Exam Findings: WITHDRAWAL SYMPTOM - Treatment Hospital Course: Detox Protocol Followed, Detoxed Safely, Responded well, Discharged Condition Good Patient has Accepted a Rehab Referral to: [facility] - Medication Discharge Medications: Ambulatory Orders Aspirin [Aspirin EC] 81 mg PO DAILY #30 mg 12/20/16 Atenolol [Tenormin -] 50 mg PO DAILY #30 mg 12/20/16 Citalopram Hydrobromide [Celexa -] 10 mg PO DAILY #30 tablet 12/20/16 Darunavir Ethanolate [Prezista] 800 mg PO DAILY #30 mg 12/20/16 Emtricitabine/Tenofovir [Truvada -] 1 tab PO DAILY #30 mg 12/20/16 Lisinopril [Prinivil -] 40 mg PO DAILY #30 mg 12/20/16 Nifedipine ER [Procardia XL -] 90 mg PO DAILY #30 mg 12/20/16 Ritonavir [Norvir -] 100 mg PO DAILY #30 mg 12/20/16 Citalopram Hydrobromide [Celexa -] 10 mg PO DAILY #30 tablet 03/28/17 Quetiapine Fumarate [Seroquel] 100 mg PO HS #30 tablet 03/28/17 - Diagnosis (1) Alcohol dependence with uncomplicated withdrawal Current Visit: Yes Status: Acute (2) Nicotine dependence Current Visit: Yes Status: Acute Qualifiers: Nicotine product type: cigarettes Substance use status: in withdrawal Qualified Code(s): F17.213 - Nicotine dependence, cigarettes, with withdrawal; F17.213 - Nicotine dependence, cigarettes, with withdrawal (3) Asthma Current Visit: Yes Status: Chronic Qualifiers: Asthma severity: mild Asthma persistence: intermittent Asthma complication type: with status asthmaticus Qualified Code(s): J45.22 - Mild intermittent asthma with status asthmaticus; J45.22 - Mild intermittent asthma with status asthmaticus; J45.22 - Mild intermittent asthma with status asthmaticus (4) GERD (gastroesophageal reflux disease) Current Visit: Yes Status: Chronic Qualifiers: Esophagitis presence: without esophagitis Qualified Code(s): K21.9 - Gastro-esophageal reflux disease without esophagitis; K21.9 - Gastro- esophageal reflux disease without esophagitis; K21.9 - Gastro-esophageal reflux disease without esophagitis (5) HIV disease Current Visit: Yes Status: Chronic (6) HTN (hypertension) Current Visit: Yes Status: Chronic Qualifiers: Hypertension type: essential hypertension Qualified Code(s): I10 - Essential (primary) hypertension; I10 - Essential (primary) hypertension; I10 - Essential (primary) hypertension (7) Major depressive disorder, recurrent, severe with psychotic features Current Visit: No Status: Chronic - AMA Did Patient Leave Against Medical Advice: No
[2017-03-31] MEDS: PRENATAL VITAMINS W/ FOLIC ACID TABLET (FP) PO SCH (09:23)
[2017-03-31] MEDS: RITONAVIR 100 MG TABLET PO SCH (09:24)
[2017-03-31] MEDS: NIFEdipine E.R. 90 MG TABLET (FP) PO SCH (09:25)
[2017-03-31] MEDS: DARUNAVIR ETHANOLATE 800 MG TAB PO SCH (09:25)
[2017-03-31 09:57] VITALS: BP 155/80; PULSE 85; TEMP 97.8
[2017-03-31 11:13] LABS: URINE APPEARANCE CLEAR; URINE BILIRUBIN NEGATIVE (NEGATIVE); URINE BLOOD NEGATIVE (NEGATIVE); URINE COLOR STRAW; URINE GLUCOSE (UA) NEGATIVE (NEGATIVE); URINE KETONE NEGATIVE (NEGATIVE); URINE NITRITE NEGATIVE (NEGATIVE); URINE PROTEIN NEGATIVE (NEGATIVE); URINE UROBILINOGEN NEGATIVE mg/dL (0.2-1.0)
[2017-03-31 14:39] LABS: URINE LEUK ESTERASE Negative (NEGATIVE)
[2017-04-01] MEDS ORDERED: METHADONE HCL 40 MG DISPERSABLE TABLET PO SCH (06:00)
== END 2017-03-31 09:30 | disposition home or self-care (01) | DRG 775 ==
LOC: YASAS 17:07 → Y6N 21:29
PROVIDERS: ADMIT Internal Medicine; ATTEND Internal Medicine
PROC: HZ2ZZZZ Detoxification Services for Substance Abuse Treatment (ICD-10-PCS; principal; 2017-03-27)
DX: F10.230 Alcohol dependence with withdrawal, uncomplicated (principal); F17.213 Nicotine dependence, cigarettes, with withdrawal; F33.3 Major depressive disorder, recurrent, severe with psychotic symptoms; J45.22 Mild intermittent asthma with status asthmaticus; K21.9 Gastro-esophageal reflux disease without esophagitis; Z21 Asymptomatic human immunodeficiency virus [HIV] infection status; I10 Essential (primary) hypertension; Z91.14 Patient's other noncompliance with medication regimen
CPT/HCPCS: 36415; 80053; 81003; 81015; 85027; 86593; 93005; 93010

== ENCOUNTER 2017-05-08 11:16 | Inpatient (IN) | payer OTHER ==
[2017-05-08 12:38] VITALS: BMI 23.8
--- NOTE | 2017-05-08 14:12 | HP ---
CIWA Score - CIWA Score Nausea/Vomitin Muscle Tremors: 3 Anxiety: 3 Agitation: 2 Paroxysmal Sweats: 3 Orientation: 0-Oriented Tacttile Disturbances: 2-Mild Itch/Numbness/Burn Auditory Disturbances: 2-Mild Harshness/Frighten Visual Disturbances: 2-Mild Sensitivity Headache: 2-Mild CIWA-Ar Total Score: 22 Admission ROS BHS - HPI Chief Complaint: i need help to stop drinkig alcohol and cocaine Allergies/Adverse Reactions: Allergies Allergy/AdvReac Type Severity Reaction Status Date / Time No Known Allergies Allergy Verified 05/08/17 14:01 History of Present Illness: this 56 years old female with alcohol,cocaine dependence,seeking detox,last treatment 03/27/17 to 03/01/17 [facility] hiv [id number] syncope alcohol relate asthma anxiety,depression,insomnia Exam Limitations: No Limitations - Ebola screening Have you traveled outside of the country in the last 21 days: No Have you had contact with anyone from an Ebola affected area: No Have you been sick,other than usual withdrawal symptoms: No Do you have a fever: No - Review of Systems Constitutional: Chills, Loss of Appetite, Malaise, Night Sweats, Changes in sleep, Weakness, Unintentional Wgt. Loss EENT: reports: Nose Congestion Respiratory: reports: No Symptoms reported Cardiac: reports: No Symptoms Reported GI: reports: No Symptoms Reported : reports: No Symptoms Reported Musculoskeletal: reports: Back Pain, Joint Pain, Muscle Pain, Neck Pain Integumentary: reports: Dryness Neuro: reports: Headache, Tremors Endocrine: reports: No Symptoms Reported Hematology: reports: No Symptoms Reported, Other (hiv) Psychiatric: reports: No Sypmtoms Reported, Judgement Intact, Mood/Affect Appropiate, Orientated x3 Patient History - Patient Medical History Hx Anemia: No Hx Asthma: Yes (on albuteril inhaler) Hx Chronic Obstructive Pulmonary Disease (COPD): No Hx Cancer: No Hx Cardiac Disorders: Yes (old mi in 2014) Hx Congestive Heart Failure: No Hx Hypertension: Yes (ON MEDICATION) Hx Hypercholesterolemia: No Hx Pacemaker: No HX Cerebrovascular Accident: Yes (old cva in 2014) Hx Seizures: No Hx Dementia: No Hx Diabetes: No Hx Gastrointestinal Disorders: Yes (gerd) Hx Liver Disease: No Hx Genitourinary Disorders: No Hx Renal Disease (ESRD): No Hx Thyroid Disease: No Hx Human Immunodeficiency Virus (HIV): Yes (diagnosed 1997,NON COMPLAINT WITH MEDS, SHINGLES IN 2013) Hx Hepatitis C: No Hx Depression: Yes (anxiety,insomnia) Hx Suicide Attempt: No Hx Bipolar Disorder: No Hx Schizophrenia: No Other Medical History: no suicidal,no homicidal - Patient Surgical History Past Surgical History: Yes Hx Neurologic Surgery: No Hx Cataract Extraction: No Hx Cardiac Surgery: No Hx Lung Surgery: No Hx Breast Surgery: Yes (Cyst removal on right breast 1979) Hx Breast Biopsy: No Hx Abdominal Surgery: No Hx Appendectomy: No Hx Cholecystectomy: No Hx Genitourinary Surgery: No Hx Section: No Hx Orthopedic Surgery: No Hx Hysterectomy: No Anesthesia Reaction: No - PPD History Previous Implant?: Yes Documented Results: Negative w/proof Date: 12/12/16 Results: 0mm PPD to be Administered?: No - Reproductive History Patient is a Female of Child Bearing Age (11 -55 yrs old): Yes Last Menstrual Period: 03/27/10 Patient : No - Smoking Cessation Smoking history: Current every day smoker Have you smoked in the past 12 months: Yes Aproximately how many cigarettes per day: 10 Cigars Per Day: 0 Hx Chewing Tobacco Use: No Initiated information on smoking cessation: Yes 'Breaking Loose' booklet given: 05/08/17 - Substance & Tx. History Hx Alcohol Use: Yes Hx Substance Use: Yes Substance Use Type: Alcohol, Cocaine Hx Substance Use Treatment: Yes ([facility] 03/27/17 to 04/10/17) - Substances Abused Alcohol Route: Oral Frequency: Daily Amount used: 1/2 pint liquor/ 3-4 cans beer Age of first use: 21 Date of Last Use: 05/07/17 Crack Route: Smoking Frequency: Daily Amount used: $100 Age of first use: 27 Date of Last Use: 05/07/17 Family Disease History - Family Disease History Family Disease History: Other: Father (/ ALCOHOLISM), Mother (/ ALCOHOLISM) Admission Physical Exam [facility] - Vital Signs Vital Signs: Vital Signs - 24 hr 05/08/17 12:33 Temperature 97.2 F L Pulse Rate 63 Respiratory 20 Rate Blood Pressure 119/74 - Physical General Appearance: Yes: Moderate Distress, Tremorous, Irritable, Sweating, Anxious HEENTM: Yes: Normal ENT Inspection, CAROLA, Pharynx Normal Respiratory: Yes: Lungs Clear, Normal Breath Sounds, No Respiratory Distress Neck: Yes: Within Normal Limits, Supple, Trachea in good position Breast: Yes: Within Normal Limits Cardiology: Yes: Within Normal Limits, Regular Rhythm, Regular Rate, S1, S2 Abdominal: Yes: Within Normal Limits, Normal Bowel Sounds, Non Tender, Flat, Soft Genitourinary: Yes: Within Normal Limits Back: Yes: Muscle Spasm Musculoskeletal: Yes: Back pain, Muscle Pain Extremities: Yes: Within Normal Limits, Normal Range of Motion, Tremors Neurological: Yes: negative checker II-XII NML intact, Fully Oriented, Alert, Motor Strength 5/5 Integumentary: Yes: Dry Lymphatic: Yes: Within Normal Limits - Diagnostic (1) Alcohol dependence with uncomplicated withdrawal Current Visit: No Status: Acute (2) Nicotine dependence Current Visit: No Status: Acute Qualifiers: Nicotine product type: cigarettes Substance use status: in withdrawal Qualified Code(s): F17.213 - Nicotine dependence, cigarettes, with withdrawal (3) Asthma Current Visit: No Status: Chronic Qualifiers: Asthma severity: mild Asthma persistence: intermittent Asthma complication type: with status asthmaticus Qualified Code(s): J45.22 - Mild intermittent asthma with status asthmaticus (4) Cocaine dependence Current Visit: No Status: Chronic Qualifiers: Substance use status: uncomplicated Qualified Code(s): F14.20 - Cocaine dependence, uncomplicated (5) GERD (gastroesophageal reflux disease) Current Visit: No Status: Chronic Qualifiers: Esophagitis presence: without esophagitis Qualified Code(s): K21.9 - Gastro -esophageal reflux disease without esophagitis (6) HIV disease Current Visit: No Status: Chronic (7) HTN (hypertension) Current Visit: No Status: Chronic Qualifiers: Hypertension type: essential hypertension Qualified Code(s): I10 - Essential (primary) hypertension (8) Weight loss Current Visit: Yes Status: Acute (9) Old MO (myocardial infarction) Current Visit: Yes Status: Acute (10) Old cerebrovascular accident (CVA) without late effect Current Visit: Yes Status: Acute Cleared for Admission BHS - Detox or Rehab [facility] Level of Care: Medically Managed Detox Regimen/Protocol: Librium S Breath Alcohol Content Breath Alcohol Content: 0 Urine Pregancy Test - Result Urine Test Results: Negative- NO Line Present Urine Drug Screen - Results Drug Screen Negative: No Urine Drug Screen Results: ANTONIO-Cocaine, TCA-Tricyclic Antidepress
[2017-05-08] MEDS ORDERED: P-EPHED 60MG/TRIPROLIDI 2.5MG TABLET PO PRN (14:31)
[2017-05-08] MEDS ORDERED: guaiFENesin/D-METHORPHAN HB 10 ML UNIT-DOSE CUPS PO PRN (14:31)
[2017-05-08] MEDS ORDERED: MAGNESIUM CITRATE 300 ML BOTTLE PO PRN (14:31)
[2017-05-08] MEDS ORDERED: ACETAMINOPHEN 325 MG TABLET (FP) PO PRN (14:31)
[2017-05-08] MEDS ORDERED: MAG HYDROX/AL HYDROX/SIMETH 30 ML UNIT-DOSE CUP PO PRN (14:31)
[2017-05-08] MEDS ORDERED: MAGNESIUM HYDROX 2400MG/30ML ORAL SUSPENSION 30 ML CUP PO PRN (14:31)
[2017-05-08] MEDS ORDERED: IBUPROFEN 400 MG TABLET (FP) PO PRN (14:31)
[2017-05-08] MEDS ORDERED: chlordiazePOXIDE HCL 25 MG CAPSULE PO PRN (14:31)
[2017-05-08] MEDS ORDERED: LOPERAMIDE HCL 2 MG CAPSULE PO PRN (14:31)
[2017-05-08] MEDS ORDERED: hydrOXYzine PAMOATE 25 MG CAPSULE (FP) PO PRN (14:31)
[2017-05-08] MEDS ORDERED: MENTHOL/PHENOL 1 EACH UD MM PRN (14:31)
[2017-05-08] MEDS ORDERED: ALBUTEROL SO4 18 GM HFA INHALER IH PRN (14:35)
[2017-05-08] MEDS ORDERED: chlordiazePOXIDE HCL 25 MG CAPSULE PO ONE (15:30)
[2017-05-08] MEDS: chlordiazePOXIDE HCL 25 MG CAPSULE PO SCH ×2 (17:19→22:26)
[2017-05-08] MEDS: THIAMINE HCL 100 MG TABLET (FP) PO SCH (22:25)
[2017-05-09] MEDS: chlordiazePOXIDE HCL 25 MG CAPSULE PO SCH ×4 (05:21→22:32)
--- NOTE | 2017-05-09 08:27 | CONSULT ---
[facility] Psychiatric Consult - Data Date of interview: 05/09/17 Admission source: [facility] Identifying data: This is 58 years old female with no psychiatric hospitalization history intoxicated with: Alcohol, Cocaine and Nicotine Substance Abuse History: - Smoking Cessation. Smoking history: Current every day smoker. Have you smoked in the past 12 months: Yes. Aproximately how many cigarettes per day: 10. Cigars Per Day: 0. Hx Chewing Tobacco Use: No. Initiated information on smoking cessation: Yes. 'Breaking Loose' booklet given : 05/08/17. - Substance & Tx. History. Hx Alcohol Use: Yes. Hx Substance Use : Yes. Substance Use Type: Alcohol, Cocaine. Hx Substance Use Treatment: Yes ( [facility] 03/27/17 to 04/10/17). - Substances Abused. Alcohol. Route: Oral. Frequency: Daily. Amount used: 1/2 pint liquor/ 3-4 cans beer. Age of first use: 21. Date of Last Use: 05/07/17. Crack. Route: Smoking. Frequency: Daily. Amount used: $100. Age of first use: 27. Date of Last Use: 05/07/17 Medical History: Asthma, GERD, HIV, HTN, Weight loss history, history of old UT and CVA Psychiatric History: Patient reports history of MDD, anxiety and depression, reports taking prior to admission: Seroquel 100mg po qhs. Celexa 10mg poqd Physical/Sexual Abuse/Trauma History: Denies Additional Comment: Seroquel 100mg po qhs. Celexa 10mg poqd Mental Status Exam - Mental Status Exam Alert and Oriented to: Person Cognitive Function: Fair Patient Appearance: Unkempt Mood: Sad Affect: Flat Patient Behavior: Sedated Speech Pattern: Delayed Voice Loudness: Mildly Soft/Quiet Thought Process: Circumstantial Thought Disorder: Being Controlled Hallucinations: Denies Suicidal Ideation: Denies Homicidal Ideation: Denies Insight/Judgement: Fair Sleep: Difficulty falling asleep Appetite: Weight loss Muscle strength/Tone: Mild Hypotonicity Gait/Station: Shuffling Additional Comments: Seroquel 100mg po qhs. Celexa 10mg poqd Psychiatric Findings - Problem List ([place] 1, 2,3) (1) Drug-induced mood disorder Current Visit: Yes Status: Acute (2) Weight loss Current Visit: Yes Status: Acute (3) Alcohol dependence with uncomplicated withdrawal Current Visit: No Status: Acute (4) Nicotine dependence Current Visit: No Status: Acute Qualifiers: Nicotine product type: cigarettes Substance use status: in withdrawal Qualified Code(s): F17.213 - Nicotine dependence, cigarettes, with withdrawal (5) Cannabis dependence Current Visit: No Status: Chronic (6) Cocaine dependence Current Visit: No Status: Chronic Qualifiers: Substance use status: uncomplicated Qualified Code(s): F14.20 - Cocaine dependence, uncomplicated (7) Major depressive disorder, recurrent, severe with psychotic features Current Visit: No Status: Chronic - Initial Treatment Plan Initial Treatment Plan: Seroquel 100mg po qhs. Celexa 10mg poqd
--- NOTE | 2017-05-09 09:54 | PN ---
S CIWA - CIWA Score Nausea/Vomitin Muscle Tremors: 3 Anxiety: 3 Agitation: 3 Paroxysmal Sweats: 1-Minimal Palms Moist Orientation: 0-Oriented Tacttile Disturbances: 1-Very Mild Itch/Numbness Auditory Disturbances: 1-Very Mild Visual Disturbances: 0-None Headache: 2-Mild CIWA-Ar Total Score: 17 BHS Progress Note (SOAP) Subjective: ALERT,IRRITABLE,ANXIOUS,INTERRUPTED SLEEP,TREMOR,PAIN IN THE BODY AND BACK Objective: 05/09/17 09:52 Vital Signs Temperature 98.4 F 05/09/17 06:12 Pulse Rate 73 05/09/17 06:12 Respiratory Rate 18 05/09/17 06:12 Blood Pressure 129/56 05/09/17 06:12 O2 Sat by Pulse Oximetry (%) EKG NSR NO CHEST PAIN,NO SOB,NO DIZZINESS LABS PENDING 05/09/17 09:54 BGM 190 Assessment: 05/09/17 09:54 WITHDRAWAL SYMPTOM Plan: CONTINUE DETOX,BGM MONITORING
[2017-05-09] MEDS: DARUNAVIR ETHANOLATE 800 MG TAB PO SCH (10:30)
[2017-05-09] MEDS: ASPIRIN 81 MG CHEWABLE TABLETS PO SCH (10:30)
[2017-05-09] MEDS: CITALOPRAM HYDROBROMIDE 10 MG TABLET (FP) PO SCH (10:30)
[2017-05-09] MEDS: PRENATAL VITAMINS W/ FOLIC ACID TABLET (FP) PO SCH (10:30)
[2017-05-09] MEDS: LISINOPRIL 20 MG TABLET (FP) PO SCH (10:30)
[2017-05-09] MEDS: NIFEdipine E.R. 90 MG TABLET (FP) PO SCH (10:31)
[2017-05-09] MEDS: ATENOLOL 50 MG TABLET (FP) PO SCH (10:31)
[2017-05-09 10:32] LABS: MCHC 32.1 g/dl (32.0-36.0); MEAN CELL VOLUME 87.2 fl (80-96); PLATELET COUNT 284 K/MM3 (134-434); RDW 14.4 % (11.6-15.6); WHITE BLOOD COUNT 6.7 K/mm3 (4.0-10.0)
[2017-05-09] MEDS: EMTRICITABINE 200MG/TENOFOVIR 300MG PO SCH (10:32)
[2017-05-09 10:54] LABS: ALBUMIN 3.9 g/dl (3.4-5.0); ANION GAP 9 (8-16); CALCIUM 9.1 mg/dL (8.5-10.1); CO2 26 mmol/L (21-32); GLUCOSE,RANDOM 126 mg/dL (74-106)
[2017-05-09 10:59] LABS: ALK PHOS 114 U/L (45-117); BILIRUBIN,TOTAL 0.5 mg/dL (0.2-1.0); CREATININE 0.9 mg/dL (0.55-1.02); SGOT/AST 15 U/L (15-37); SGPT/ALT 20 U/L (12-78); TOT PROT 8.8 g/dl (6.4-8.2)
[2017-05-09] MEDS: RITONAVIR 100 MG TABLET PO SCH (11:58)
--- NOTE | 2017-05-09 12:36 | EKG ---
Test Reason : Blood Pressure : / mmHG Vent. Rate : 066 BPM Atrial Rate : 066 BPM P-R Int : 158 ms QRS Dur : 082 ms QT Int : 442 ms P-R-T Axes : 060 052 042 degrees QTc Int : 463 ms NORMAL SINUS RHYTHM POSSIBLE LEFT ATRIAL ENLARGEMENT ANTEROSEPTAL INFARCT (CITED ON OR BEFORE 12-DEC-2016) ABNORMAL ECG WHEN COMPARED WITH ECG OF 27-MAR-2017 22:42, NO SIGNIFICANT CHANGE WAS FOUND Confirmed by TIM OLEARY MD ([id number]) on 05/09/2017 12:35:59 PM Referred By: Confirmed By:TIM OLEARY MD
[2017-05-09 13:56] LABS: URINE APPEARANCE SLCLOUDY; URINE BILIRUBIN NEGATIVE (NEGATIVE); URINE BLOOD NEGATIVE (NEGATIVE); URINE COLOR YELLOW; URINE GLUCOSE (UA) NEGATIVE (NEGATIVE); URINE KETONE NEGATIVE (NEGATIVE); URINE NITRITE NEGATIVE (NEGATIVE); URINE PROTEIN NEGATIVE (NEGATIVE); URINE UROBILINOGEN NEGATIVE mg/dL (0.2-1.0)
[2017-05-09 17:00] LABS: URINE LEUK ESTERASE Negative (NEGATIVE)
[2017-05-09] MEDS: QUEtiapine FUMARATE 100 MG TABLET (FP) PO SCH (22:31)
[2017-05-09] MEDS: THIAMINE HCL 100 MG TABLET (FP) PO SCH (22:31)
[2017-05-10] MEDS: chlordiazePOXIDE HCL 25 MG CAPSULE PO SCH ×2 (05:17→10:40)
--- NOTE | 2017-05-10 10:19 | PN ---
S CIWA - CIWA Score Nausea/Vomitin Muscle Tremors: 3 Anxiety: 2 Agitation: 2 Paroxysmal Sweats: 1-Minimal Palms Moist Orientation: 0-Oriented Tacttile Disturbances: 1-Very Mild Itch/Numbness Auditory Disturbances: 1-Very Mild Visual Disturbances: 0-None Headache: 2-Mild CIWA-Ar Total Score: 15 BHS Progress Note (SOAP) Subjective: alert,irritable,anxious,interrupted sleep,tremor Objective: 05/10/17 10:18 Vital Signs Temperature 98.4 F 05/10/17 10:16 Pulse Rate 77 05/10/17 10:16 Respiratory Rate 16 05/10/17 10:16 Blood Pressure 132/56 05/10/17 10:16 O2 Sat by Pulse Oximetry (%) 05/10/17 10:18 Laboratory Last Values WBC 6.7 K/mm3 (4.0-10.0) 05/09/17 06:00 RBC 5.21 M/mm3 (3.60-5.2) H 05/09/17 06:00 Hgb 14.6 GM/dL (10.7-15.3) D 05/09/17 06:00 Hct 45.4 % (32.4-45.2) H 05/09/17 06:00 MCV 87.2 fl (80-96) 05/09/17 06:00 MCH 28.0 pg (25.7-33.7) 05/09/17 06:00 MCHC 32.1 g/dl (32.0-36.0) 05/09/17 06:00 RDW 14.4 % (11.6-15.6) 05/09/17 06:00 Plt Count 284 K/MM3 (134-434) D 05/09/17 06:00 MPV 10.0 fl (7.5-11.1) 05/09/17 06:00 Sodium 141 mmol/L (136-145) 05/09/17 06:00 Potassium 3.9 mmol/L (3.5-5.1) 05/09/17 06:00 Chloride 106 mmol/L (98-107) 05/09/17 06:00 Carbon Dioxide 26 mmol/L (21-32) 05/09/17 06:00 Anion Gap 9 (8-16) 05/09/17 06:00 BUN 18 mg/dL (7-18) D 05/09/17 06:00 Creatinine 0.9 mg/dL (0.55-1.02) D 05/09/17 06:00 Creat Clearance w eGFR > 60 (>60) 05/09/17 06:00 Random Glucose 126 mg/dL (74-106) H D 05/09/17 06:00 Calcium 9.1 mg/dL (8.5-10.1) 05/09/17 06:00 Total Bilirubin 0.5 mg/dL (0.2-1.0) 05/09/17 06:00 AST 15 U/L (15-37) D 05/09/17 06:00 ALT 20 U/L (12-78) 05/09/17 06:00 Alkaline Phosphatase 114 U/L (45-117) D 05/09/17 06:00 Total Protein 8.8 g/dl (6.4-8.2) H 05/09/17 06:00 Albumin 3.9 g/dl (3.4-5.0) D 05/09/17 06:00 Urine Color Yellow 05/09/17 11:10 Urine Appearance Slcloudy 05/09/17 11:10 Urine pH 6.0 (5.0-8.0) 05/09/17 11:10 Ur Specific [place] 1.020 (1.001-1.035) 05/09/17 11:10 Urine Protein Negative (NEGATIVE) 05/09/17 11:10 Urine Glucose (UA) Negative (NEGATIVE) 05/09/17 11:10 Urine Ketones Negative (NEGATIVE) 05/09/17 11:10 Urine Blood Negative (NEGATIVE) 05/09/17 11:10 Urine Nitrite Negative (NEGATIVE) 05/09/17 11:10 Urine Bilirubin Negative (NEGATIVE) 05/09/17 11:10 Urine Urobilinogen Negative mg/dL (0.2-1.0) 05/09/17 11:10 Ur Leukocyte Esterase Negative (NEGATIVE) 05/09/17 11:10 RPR Titer Nonreactive (NONREACTIVE) 05/09/17 06:00 Assessment: 05/10/17 10:18 withdrawal symptom Plan: continue detox,bgm monitoring,initial glucose 126
[2017-05-10] MEDS: ASPIRIN 81 MG CHEWABLE TABLETS PO SCH (10:40)
[2017-05-10] MEDS: DARUNAVIR ETHANOLATE 800 MG TAB PO SCH (10:40)
[2017-05-10] MEDS: PRENATAL VITAMINS W/ FOLIC ACID TABLET (FP) PO SCH (10:41)
[2017-05-10] MEDS: EMTRICITABINE 200MG/TENOFOVIR 300MG PO SCH (10:41)
[2017-05-10] MEDS: LISINOPRIL 20 MG TABLET (FP) PO SCH (10:41)
[2017-05-10] MEDS: RITONAVIR 100 MG TABLET PO SCH (10:41)
[2017-05-10] MEDS: ATENOLOL 50 MG TABLET (FP) PO SCH (10:42)
[2017-05-10] MEDS: NIFEdipine E.R. 90 MG TABLET (FP) PO SCH (10:42)
[2017-05-10] MEDS: CITALOPRAM HYDROBROMIDE 10 MG TABLET (FP) PO SCH (10:45)
[2017-05-10] MEDS: chlordiazePOXIDE 5 MG CAPSULE PO SCH ×2 (17:25→22:25)
[2017-05-10] MEDS: THIAMINE HCL 100 MG TABLET (FP) PO SCH (22:25)
[2017-05-10] MEDS: QUEtiapine FUMARATE 100 MG TABLET (FP) PO SCH (22:25)
[2017-05-11] MEDS: chlordiazePOXIDE 5 MG CAPSULE PO SCH ×2 (05:45→10:45)
[2017-05-11] MEDS: LISINOPRIL 20 MG TABLET (FP) PO SCH (10:40)
[2017-05-11] MEDS: CITALOPRAM HYDROBROMIDE 10 MG TABLET (FP) PO SCH (10:42)
[2017-05-11] MEDS: NIFEdipine E.R. 90 MG TABLET (FP) PO SCH (10:42)
[2017-05-11] MEDS: PRENATAL VITAMINS W/ FOLIC ACID TABLET (FP) PO SCH (10:42)
[2017-05-11] MEDS: ASPIRIN 81 MG CHEWABLE TABLETS PO SCH (10:42)
[2017-05-11] MEDS: DARUNAVIR ETHANOLATE 800 MG TAB PO SCH (10:43)
[2017-05-11] MEDS: ATENOLOL 50 MG TABLET (FP) PO SCH (10:44)
[2017-05-11] MEDS: EMTRICITABINE 200MG/TENOFOVIR 300MG PO SCH (10:44)
[2017-05-11] MEDS: RITONAVIR 100 MG TABLET PO SCH (10:45)
--- NOTE | 2017-05-11 14:41 | PN ---
[facility] Progress Note (SOAP) Subjective: Sweating,interrupted sleep,restless Objective: 05/11/17 14:39 Vital Signs - 8 hr 05/11/17 05/11/17 10:00 14:06 Temperature 97.3 F L 98.2 F Pulse Rate 84 80 Respiratory 16 18 Rate Blood Pressure 129/82 126/76 Laboratory Tests 05/09/17 05/09/17 05/09/17 06:00 06:00 06:00 WBC 6.7 RBC 5.21 H Hgb 14.6 D Hct 45.4 H MCV 87.2 MCH 28.0 MCHC 32.1 RDW 14.4 Plt Count 284 D MPV 10.0 Sodium 141 Potassium 3.9 Chloride 106 Carbon Dioxide 26 Anion Gap 9 BUN 18 D Creatinine 0.9 D Creat Clearance w eGFR > 60 Random Glucose 126 H D Calcium 9.1 Total Bilirubin 0.5 AST 15 D ALT 20 Alkaline Phosphatase 114 D Total Protein 8.8 H Albumin 3.9 D Urine Color Urine Appearance Urine pH Ur Specific [place] Urine Protein Urine Glucose (UA) Urine Ketones Urine Blood Urine Nitrite Urine Bilirubin Urine Urobilinogen Ur Leukocyte Esterase RPR Titer Nonreactive 05/09/17 11:10 WBC RBC Hgb Hct MCV MCH MCHC RDW Plt Count MPV Sodium Potassium Chloride Carbon Dioxide Anion Gap BUN Creatinine Creat Clearance w eGFR Random Glucose Calcium Total Bilirubin AST ALT Alkaline Phosphatase Total Protein Albumin Urine Color Yellow Urine Appearance Slcloudy Urine pH 6.0 Ur Specific [place] 1.020 Urine Protein Negative Urine Glucose (UA) Negative Urine Ketones Negative Urine Blood Negative Urine Nitrite Negative Urine Bilirubin Negative Urine Urobilinogen Negative Ur Leukocyte Esterase Negative RPR Titer labs noted Assessment: 05/11/17 14:40 Withdrawal sx. Plan: Continue detox
[2017-05-11] MEDS: chlordiazePOXIDE HCL 10 MG CAPSULE PO SCH ×2 (18:18→22:30)
[2017-05-11] MEDS: THIAMINE HCL 100 MG TABLET (FP) PO SCH (22:30)
[2017-05-11] MEDS: QUEtiapine FUMARATE 100 MG TABLET (FP) PO SCH (22:30)
[2017-05-12] MEDS: chlordiazePOXIDE HCL 10 MG CAPSULE PO SCH ×2 (05:17→10:05)
[2017-05-12] MEDS: DARUNAVIR ETHANOLATE 800 MG TAB PO SCH (07:19)
[2017-05-12 09:30] VITALS: BP 128/72; PULSE 85; TEMP 97.8
[2017-05-12] MEDS: RITONAVIR 100 MG TABLET PO SCH (10:01)
[2017-05-12] MEDS: EMTRICITABINE 200MG/TENOFOVIR 300MG PO SCH (10:02)
[2017-05-12] MEDS: CITALOPRAM HYDROBROMIDE 10 MG TABLET (FP) PO SCH (10:02)
[2017-05-12] MEDS: NIFEdipine E.R. 90 MG TABLET (FP) PO SCH (10:02)
[2017-05-12] MEDS: PRENATAL VITAMINS W/ FOLIC ACID TABLET (FP) PO SCH (10:02)
[2017-05-12] MEDS: ASPIRIN 81 MG CHEWABLE TABLETS PO SCH (10:02)
[2017-05-12] MEDS: LISINOPRIL 20 MG TABLET (FP) PO SCH (10:03)
[2017-05-12] MEDS: ATENOLOL 50 MG TABLET (FP) PO SCH (10:03)
--- NOTE | 2017-05-12 11:55 | DS ---
[facility] Detox Discharge Summary Admission Date: 05/08/17 Discharge Date: 05/12/17 - History Present History: Alcohol Dependence, Cocaine Dependence Pertinent Past History: HTN HIV disease - Physical Exam Results Vital Signs: Vital Signs Temperature 97.8 F 05/12/17 09:27 Pulse Rate 85 05/12/17 09:27 Respiratory Rate 18 05/12/17 09:27 Blood Pressure 128/72 05/12/17 09:27 O2 Sat by Pulse Oximetry (%) Pertinent Admission Physical Exam Findings: Withdrawal sx. Laboratory Last Values WBC 6.7 K/mm3 (4.0-10.0) 05/09/17 06:00 RBC 5.21 M/mm3 (3.60-5.2) H 05/09/17 06:00 Hgb 14.6 GM/dL (10.7-15.3) D 05/09/17 06:00 Hct 45.4 % (32.4-45.2) H 05/09/17 06:00 MCV 87.2 fl (80-96) 05/09/17 06:00 MCH 28.0 pg (25.7-33.7) 05/09/17 06:00 MCHC 32.1 g/dl (32.0-36.0) 05/09/17 06:00 RDW 14.4 % (11.6-15.6) 05/09/17 06:00 Plt Count 284 K/MM3 (134-434) D 05/09/17 06:00 MPV 10.0 fl (7.5-11.1) 05/09/17 06:00 Sodium 141 mmol/L (136-145) 05/09/17 06:00 Potassium 3.9 mmol/L (3.5-5.1) 05/09/17 06:00 Chloride 106 mmol/L (98-107) 05/09/17 06:00 Carbon Dioxide 26 mmol/L (21-32) 05/09/17 06:00 Anion Gap 9 (8-16) 05/09/17 06:00 BUN 18 mg/dL (7-18) D 05/09/17 06:00 Creatinine 0.9 mg/dL (0.55-1.02) D 05/09/17 06:00 Creat Clearance w eGFR > 60 (>60) 05/09/17 06:00 POC Glucometer 115 UNITS (80-120) 05/12/17 05:15 Random Glucose 126 mg/dL (74-106) H D 05/09/17 06:00 Calcium 9.1 mg/dL (8.5-10.1) 05/09/17 06:00 Total Bilirubin 0.5 mg/dL (0.2-1.0) 05/09/17 06:00 AST 15 U/L (15-37) D 05/09/17 06:00 ALT 20 U/L (12-78) 05/09/17 06:00 Alkaline Phosphatase 114 U/L (45-117) D 05/09/17 06:00 Total Protein 8.8 g/dl (6.4-8.2) H 05/09/17 06:00 Albumin 3.9 g/dl (3.4-5.0) D 05/09/17 06:00 Urine Color Yellow 05/09/17 11:10 Urine Appearance Slcloudy 05/09/17 11:10 Urine pH 6.0 (5.0-8.0) 05/09/17 11:10 Ur Specific [place] 1.020 (1.001-1.035) 05/09/17 11:10 Urine Protein Negative (NEGATIVE) 05/09/17 11:10 Urine Glucose (UA) Negative (NEGATIVE) 05/09/17 11:10 Urine Ketones Negative (NEGATIVE) 05/09/17 11:10 Urine Blood Negative (NEGATIVE) 05/09/17 11:10 Urine Nitrite Negative (NEGATIVE) 05/09/17 11:10 Urine Bilirubin Negative (NEGATIVE) 05/09/17 11:10 Urine Urobilinogen Negative mg/dL (0.2-1.0) 05/09/17 11:10 Ur Leukocyte Esterase Negative (NEGATIVE) 05/09/17 11:10 RPR Titer Nonreactive (NONREACTIVE) 05/09/17 06:00 labs noted - Treatment Hospital Course: Detox Protocol Followed, Detoxed Safely, Responded well, Discharged Condition Good, Rehab Referral Accepted Patient has Accepted a Rehab Referral to: [facility] or [place] - Medication Discharge Medications: Ambulatory Orders Atenolol [Tenormin -] 50 mg PO DAILY #30 mg 12/20/16 Darunavir Ethanolate [Prezista] 800 mg PO DAILY #30 mg 12/20/16 Emtricitabine/Tenofovir [Truvada -] 1 tab PO DAILY #30 mg 12/20/16 Lisinopril [Prinivil -] 40 mg PO DAILY #30 mg 12/20/16 Nifedipine ER [Procardia XL -] 90 mg PO DAILY #30 mg 12/20/16 Ritonavir [Norvir -] 100 mg PO DAILY #30 mg 12/20/16 Citalopram Hydrobromide [Celexa -] 10 mg PO DAILY #30 tablet 03/28/17 Quetiapine Fumarate [Seroquel] 100 mg PO HS #30 tablet 03/28/17 Aspirin [ASA -] 81 mg PO DAILY tab.chew 03/31/17 Ranitidine [Zantac -] 150 mg PO BID tablet 03/31/17 Albuterol Sulfate Inhaler - [Ventolin Hfa Inhaler -] 2 inh PO Q4H PRN 05/08/17 Citalopram Hydrobromide [Celexa -] 10 mg PO DAILY #30 tablet 05/09/17 Quetiapine Fumarate [Seroquel] 100 mg PO HS #30 tablet 05/09/17 - Diagnosis (1) Alcohol dependence with uncomplicated withdrawal Current Visit: Yes Status: Acute (2) Cocaine dependence Current Visit: No Status: Chronic Qualifiers: Substance use status: uncomplicated Qualified Code(s): F14.20 - Cocaine dependence, uncomplicated (3) Nicotine dependence Current Visit: No Status: Acute Qualifiers: Nicotine product type: cigarettes Substance use status: in withdrawal Qualified Code(s): F17.213 - Nicotine dependence, cigarettes, with withdrawal (4) Asthma Current Visit: No Status: Chronic Qualifiers: Asthma severity: mild Asthma persistence: intermittent Asthma complication type: with status asthmaticus Qualified Code(s): J45.22 - Mild intermittent asthma with status asthmaticus (5) GERD (gastroesophageal reflux disease) Current Visit: No Status: Chronic Qualifiers: Esophagitis presence: without esophagitis Qualified Code(s): K21.9 - Gastro -esophageal reflux disease without esophagitis (6) HIV disease Current Visit: No Status: Chronic (7) HTN (hypertension) Current Visit: No Status: Chronic Qualifiers: Hypertension type: essential hypertension Qualified Code(s): I10 - Essential (primary) hypertension (8) Major depressive disorder, recurrent, severe with psychotic features Current Visit: Yes Status: Chronic - AMA Did Patient Leave Against Medical Advice: No
== END 2017-05-12 10:05 | disposition home or self-care (01) | DRG 774 ==
LOC: YASAS 11:16 → Y6N 15:23
PROVIDERS: ADMIT Internal Medicine; ATTEND Internal Medicine
PROC: HZ2ZZZZ Detoxification Services for Substance Abuse Treatment (ICD-10-PCS; principal; 2017-05-08)
DX: F10.230 Alcohol dependence with withdrawal, uncomplicated (principal); F14.20 Cocaine dependence, uncomplicated; F12.20 Cannabis dependence, uncomplicated; F17.210 Nicotine dependence, cigarettes, uncomplicated; F33.3 Major depressive disorder, recurrent, severe with psychotic symptoms; F19.24 Other psychoactive substance dependence with psychoactive substance-induced mood disorder; I10 Essential (primary) hypertension; J45.22 Mild intermittent asthma with status asthmaticus; K21.9 Gastro-esophageal reflux disease without esophagitis; Z21 Asymptomatic human immunodeficiency virus [HIV] infection status; R63.4 Abnormal weight loss; Z68.23 Body mass index [BMI] 23.0-23.9, adult
CPT/HCPCS: 36415; 80053; 81003; 85027; 86593; 93005; 93010

== ENCOUNTER 2017-09-26 11:02 | Inpatient (IN) | payer OTHER ==
[2017-09-26 11:25] VITALS: BMI 22.6
--- NOTE | 2017-09-26 15:38 | HP ---
CIWA Score - CIWA Score Nausea/Vomitin Muscle Tremors: 3 Anxiety: 3 Agitation: 3 Paroxysmal Sweats: 3 Orientation: 0-Oriented Tacttile Disturbances: 1-Very Mild Itch/Numbness Auditory Disturbances: 0-None Visual Disturbances: 0-None Headache: 0-None Present CIWA-Ar Total Score: 16 Admission [facility] Chief Complaint: alcohol withdrawal sx Allergies/Adverse Reactions: Allergies Allergy/AdvReac Type Severity Reaction Status Date / Time No Known Allergies Allergy Verified 09/26/17 13:11 History of Present Illness: 57 yo m with h/o alcohol use disorder, severe with withdrawwl sx when she does nto drink and crack cocaine dependence smokes 1PPD PMHX anxiety, depression and insomnia, thisrty. 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 Exam Limitations: No Limitations - Ebola screening Have you traveled outside of the country in the last 21 days: No Have you had contact with anyone from an Ebola affected area: No Have you been sick,other than usual withdrawal symptoms: No Do you have a fever: No - Review of Systems Constitutional: Chills, Diaphoresis, Night Sweats, Changes in sleep, Weight Stable EENT: reports: No Symptoms Reported Respiratory: reports: No Symptoms reported Cardiac: reports: No Symptoms Reported GI: reports: Diarrhea, Nausea, Poor Appetite, Poor Fluid Intake, Vomiting, Indigestion, Abdominal cramping : reports: No Symptoms Reported Musculoskeletal: reports: No Symptoms Reported Integumentary: reports: Flushing, Sweating Neuro: reports: Numbness, Tingling, Tremors Endocrine: reports: Increased Thirst Hematology: reports: No Symptoms Reported Psychiatric: reports: Judgement Intact, Mood/Affect Appropiate, Orientated x3, Anxious, Depressed Other Systems: Reviewed and Negative Patient History - Patient Medical History Hx Anemia: No Hx Asthma: Yes Hx Chronic Obstructive Pulmonary Disease (COPD): No Hx Cancer: No Hx Cardiac Disorders: No Hx Congestive Heart Failure: No Hx Hypertension: Yes Hx Hypercholesterolemia: No Hx Pacemaker: No HX Cerebrovascular Accident: Yes (old cva in 2014) Hx Seizures: No Hx Dementia: No Hx Diabetes: No Hx Gastrointestinal Disorders: Yes (acid reflux) Hx Liver Disease: No Hx Genitourinary Disorders: No Hx Sexually Transmitted Disorders: No Hx Renal Disease (ESRD): No Hx Thyroid Disease: No Hx Human Immunodeficiency Virus (HIV): Yes (diagnosed 1997,NON COMPLAINT WITH MEDS, SHINGLES IN 2013) Hx Hepatitis C: No Hx Depression: Yes Hx Suicide Attempt: No (no si at this time) Hx Bipolar Disorder: No Hx Schizophrenia: No - Patient Surgical History Past Surgical History: Yes Hx Neurologic Surgery: No Hx Cataract Extraction: No Hx Cardiac Surgery: No Hx Lung Surgery: No Hx Breast Surgery: Yes (Cyst removal on right breast 1979) Hx Breast Biopsy: No Hx Abdominal Surgery: No Hx Appendectomy: No Hx Cholecystectomy: No Hx Genitourinary Surgery: No Hx Section: No Hx Orthopedic Surgery: No Hx Hysterectomy: No Anesthesia Reaction: No - PPD History Previous Implant?: Yes Documented Results: Negative w/proof Implanted On Prior [facility] Admission?: Yes Date: 12/12/16 Results: 0 mm PPD to be Administered?: No - Reproductive History Patient is a Female of Child Bearing Age (11 -55 yrs old): No Last Menstrual Period: 03/27/10 Patient : No - Smoking Cessation Smoking history: Current every day smoker Have you smoked in the past 12 months: Yes Aproximately how many cigarettes per day: 20 Cigars Per Day: 0 Hx Chewing Tobacco Use: No Initiated information on smoking cessation: Yes 'Breaking Loose' booklet given: 09/26/17 - Substance & Tx. History Hx Alcohol Use: Yes Hx Substance Use: Yes Substance Use Type: Alcohol, Cocaine Hx Substance Use Treatment: Yes ([facility] [place]) - Substances Abused Crack Route: Smoking Frequency: Daily Amount used: $100 Age of first use: 27 Date of Last Use: 09/26/17 Alcohol-whisky/beer Route: Oral Frequency: Daily Amount used: 1 pt./2-3 (12 oz.) Age of first use: 15 Date of Last Use: 09/26/17 Family Disease History - Family Disease History Family Disease History: Other: Father (/ ALCOHOLISM), Mother (/ ALCOHOLISM) Admission Physical Exam S - Vital Signs Vital Signs: Vital Signs - 24 hr 09/26/17 11:18 Temperature 96.5 F L Pulse Rate 74 Respiratory 18 Rate Blood Pressure 195/113 - Physical General Appearance: Yes: Nourished, Appropriately Dressed, Disheveled, Mild Distress, Thin, Tremorous, Irritable, Sweating, Anxious HEENTM: Yes: Within Normal Limits, EOMI, Hearing grossly Normal, Normal ENT Inspection, Normocephalic, Normal Voice, CAROLA, Pharynx Normal Respiratory: Yes: Within Normal Limits, Chest Non-Tender, Lungs Clear, Normal Breath Sounds, No Respiratory Distress, No Accessory Muscle Use Neck: Yes: Within Normal Limits, No masses,lesions,Nodules, Supple, Trachea in good position Breast: Yes: Breast Exam Deferred Cardiology: Yes: Within Normal Limits, Regular Rhythm, Regular Rate, S1, S2 Abdominal: Yes: Within Normal Limits, Normal Bowel Sounds, Non Tender, Flat, Soft, Increased Bowel Sounds Genitourinary: Yes: Within Normal Limits Back: Yes: Within Normal Limits, Normal Inspection Musculoskeletal: Yes: Within Normal Limits, full range of Motion, Gait Steady, Pelvis Stable Extremities: Yes: Normal Capillary Refill, Normal Range of Motion, Non-Tender, Tremors Neurological: Yes: employee adviser II-XII NML intact, Fully Oriented, Alert, Motor Strength 5/5, Normal Response, Depressed Affect Integumentary: Yes: Normal Color, Warm, Diaphoresis, Moist Lymphatic: Yes: Within Normal Limits - Addiitonal Findings: withdrawal sx - Diagnostic (1) Alcohol dependence with uncomplicated withdrawal Current Visit: No Status: Acute (2) Drug-induced mood disorder Current Visit: No Status: Acute (3) Nicotine dependence Current Visit: No Status: Acute Qualifiers: (4) Old [place] (myocardial infarction) Current Visit: No Status: Acute (5) Old cerebrovascular accident (CVA) without late effect Current Visit: No Status: Acute (6) Weight loss Current Visit: No Status: Acute (7) Asthma Current Visit: No Status: Chronic Qualifiers: (8) Cannabis dependence Current Visit: No Status: Chronic (9) Cocaine dependence Current Visit: No Status: Chronic (10) GERD (gastroesophageal reflux disease) Current Visit: No Status: Chronic Qualifiers: (11) HIV disease Current Visit: No Status: Chronic (12) HTN (hypertension) Current Visit: No Status: Chronic Qualifiers: Qualified Code(s): I10 - Essential (primary) hypertension (13) Major depressive disorder, recurrent, severe with psychotic features Current Visit: No Status: Chronic Cleared for Admission S - Detox or Rehab S Level of Care: Medically Managed Detox Regimen/Protocol: Librium [facility] Breath Alcohol Content Breath Alcohol Content: 0 Urine Pregancy Test - Result Urine Test Results: Negative- NO Line Present Urine Drug Screen - Results Drug Screen Negative: Yes Urine Drug Screen Results: ANTONIO-Cocaine
[2017-09-26] MEDS ORDERED: MAG HYDROX/AL HYDROX/SIMETH 30 ML UNIT-DOSE CUP PO PRN (15:39)
[2017-09-26] MEDS ORDERED: MENTHOL/PHENOL 1 EACH UD MM PRN (15:39)
[2017-09-26] MEDS ORDERED: ACETAMINOPHEN 325 MG TABLET (FP) PO PRN (15:39)
[2017-09-26] MEDS ORDERED: guaiFENesin/D-METHORPHAN HB 10 ML UNIT-DOSE CUPS PO PRN (15:39)
[2017-09-26] MEDS ORDERED: MAGNESIUM CITRATE 300 ML BOTTLE PO PRN (15:39)
[2017-09-26] MEDS ORDERED: LOPERAMIDE HCL 2 MG CAPSULE PO PRN (15:39)
[2017-09-26] MEDS ORDERED: hydrOXYzine PAMOATE 50 MG CAPSULE (FP) PO PRN (15:39)
[2017-09-26] MEDS ORDERED: IBUPROFEN 400 MG TABLET (FP) PO PRN (15:39)
[2017-09-26] MEDS ORDERED: chlordiazePOXIDE HCL 25 MG CAPSULE PO PRN (15:39)
[2017-09-26] MEDS ORDERED: P-EPHED 60MG/TRIPROLIDI 2.5MG TABLET PO PRN (15:39)
[2017-09-26] MEDS ORDERED: NICOTINE POLACRILEX 2 MG GUM BC PRN (15:39)
[2017-09-26] MEDS ORDERED: MAGNESIUM HYDROX 2400MG/30ML ORAL SUSPENSION 30 ML CUP PO PRN (15:39)
[2017-09-26] MEDS ORDERED: ALBUTEROL SO4 18 GM HFA INHALER IH PRN (15:51)
[2017-09-26] MEDS ORDERED: PATIENT'S OWN MEDICATION (NON-FORMULARY) (Lisinopril [Prinivil -] 40 MG) PO SCH (16:00)
[2017-09-26] MEDS ORDERED: chlordiazePOXIDE HCL 25 MG CAPSULE PO ONE (16:30)
[2017-09-26] MEDS: chlordiazePOXIDE HCL 25 MG CAPSULE PO SCH ×2 (17:45→22:43)
[2017-09-26] MEDS: ASPIRIN 81 MG CHEWABLE TABLETS PO SCH (17:45)
[2017-09-26] MEDS: RITONAVIR 100 MG TABLET PO SCH (17:46)
[2017-09-26] MEDS: EMTRICITABINE 200MG/TENOFOVIR 300MG PO SCH (17:46)
[2017-09-26] MEDS: ATENOLOL 50 MG TABLET (FP) PO SCH (17:47)
[2017-09-26] MEDS: DARUNAVIR ETHANOLATE 800 MG TAB PO SCH (17:47)
[2017-09-26] MEDS: NIFEdipine E.R. 90 MG TABLET (FP) PO SCH (17:47)
[2017-09-26] MEDS: NICOTINE 21 MG/24 HOURS TOPICAL PATCH TD SCH (17:50)
[2017-09-26] MEDS ORDERED: MELATONIN 5 MG TABLETS PO PRN (22:00)
[2017-09-26] MEDS: THIAMINE HCL 100 MG TABLET (FP) PO SCH (22:43)
[2017-09-26] MEDS: RANITIDINE HCL 150 MG TABLET (FP) PO SCH (22:43)
[2017-09-26 23:00] LABS: URINE APPEARANCE CLEAR; URINE BILIRUBIN NEGATIVE (<2.0 mg/dL); URINE BLOOD 1+ (NEGATIVE); URINE COLOR LTYELLOW; URINE GLUCOSE (UA) NEGATIVE (NEGATIVE); URINE KETONE NEGATIVE (NEGATIVE); URINE LEUK ESTERASE NEGATIVE (NEGATIVE); URINE NITRITE NEGATIVE (NEGATIVE); URINE PROTEIN NEGATIVE (NEGATIVE)
[2017-09-26 23:24] LABS: EPI CELLS RARE /HPF (FEW); URINE BACTERIA RARE /hpf (NONE SEEN); URINE MUCUS RARE
[2017-09-26] MEDS ORDERED: cloNIDine HCL 0.1 MG TABLET PO ONE (23:45)
--- NOTE | 2017-09-26 23:59 | PN ---
[facility] Progress Note Note: Patient's blood pressure now is B/P 154/103. He is asymptomatic. Denies headache or discomfort at this time Vital Signs Temperature 98.2 F 09/26/17 18:11 Pulse Rate 79 09/26/17 18:11 Respiratory Rate 16 09/26/17 18:11 Blood Pressure 189/102 09/26/17 18:11 O2 Sat by Pulse Oximetry (%) Laboratory Last Values Urine Color Ltyellow 09/26/17 17:23 Urine Appearance Clear 09/26/17 17:23 Urine pH 6.0 (5.0-8.0) 09/26/17 17:23 Ur Specific [place] 1.021 (1.001-1.035) 09/26/17 17:23 Urine Protein Negative (NEGATIVE) 09/26/17 17:23 Urine Glucose (UA) Negative (NEGATIVE) 09/26/17 17:23 Urine Ketones Negative (NEGATIVE) 09/26/17 17:23 Urine Blood 1+ (NEGATIVE) H 09/26/17 17:23 Urine Nitrite Negative (NEGATIVE) 09/26/17 17:23 Urine Bilirubin Negative (<2.0 mg/dL) 09/26/17 17:23 Urine Urobilinogen 2.0 mg/dL (0.2-1.0) H 09/26/17 17:23 Ur Leukocyte Esterase Negative (NEGATIVE) 09/26/17 17:23 Urine WBC (Auto) 1 /hpf (3-5) 09/26/17 17:23 Urine RBC (Auto) 9 /hpf (0-3) 09/26/17 17:23 Ur Epithelial Cells Rare /HPF (FEW) 09/26/17 17:23 Urine Bacteria Rare /hpf (NONE SEEN) 09/26/17 17:23 Urine Mucus Rare 09/26/17 17:23 Action: Clonidine o.1mg tablet oral. Will continue to monitor patient's blood pressure
[2017-09-27] MEDS: chlordiazePOXIDE HCL 25 MG CAPSULE PO SCH ×4 (06:45→23:33)
[2017-09-27 10:22] LABS: HEMATOCRIT 40.1 % (32.4-45.2); HEMOGLOBIN 13.1 GM/dL (10.7-15.3); MCH 28.1 pg (25.7-33.7); MCHC 32.8 g/dl (32.0-36.0); MEAN CELL VOLUME 85.7 fl (80-96); MEAN PLT VOLUME 10.2 fl (7.5-11.1); PLATELET COUNT 228 K/MM3 (134-434); RBC 4.67 M/mm3 (3.60-5.2); RDW 13.3 % (11.6-15.6); WHITE BLOOD COUNT 4.7 K/mm3 (4.0-10.0)
[2017-09-27 10:27] LABS: BLOOD UREA NITROGEN 21 mg/dL (7-18); CHLORIDE 105 mmol/L (98-107); GLUCOSE,RANDOM 109 mg/dL (74-106); POTASSIUM 3.7 mmol/L (3.5-5.1); SODIUM 142 mmol/L (136-145)
[2017-09-27 10:33] LABS: ALBUMIN 3.6 g/dl (3.4-5.0); ALK PHOS 101 U/L (45-117); ANION GAP 7 (8-16); BILIRUBIN,TOTAL 0.2 mg/dL (0.2-1.0); CALCIUM 9.2 mg/dL (8.5-10.1); CO2 30 mmol/L (21-32); CREATININE 0.9 mg/dL (0.55-1.02); SGOT/AST 17 U/L (15-37); SGPT/ALT 21 U/L (12-78); TOT PROT 7.8 g/dl (6.4-8.2)
[2017-09-27] MEDS: RITONAVIR 100 MG TABLET PO SCH (10:38)
[2017-09-27] MEDS: PRENATAL VITAMINS W/ FOLIC ACID TABLET (FP) PO SCH (10:38)
[2017-09-27] MEDS: EMTRICITABINE 200MG/TENOFOVIR 300MG PO SCH (10:38)
[2017-09-27] MEDS: DARUNAVIR ETHANOLATE 800 MG TAB PO SCH (10:39)
[2017-09-27] MEDS: RANITIDINE HCL 150 MG TABLET (FP) PO SCH ×2 (10:39→23:34)
[2017-09-27] MEDS: ASPIRIN 81 MG CHEWABLE TABLETS PO SCH (10:39)
[2017-09-27] MEDS: NICOTINE 21 MG/24 HOURS TOPICAL PATCH TD SCH (10:40)
--- NOTE | 2017-09-27 10:42 | PN ---
S CIWA - CIWA Score Nausea/Vomitin Muscle Tremors: 3 Anxiety: 3 Agitation: 1-Slight > Activity Paroxysmal Sweats: 1-Minimal Palms Moist Orientation: 0-Oriented Tacttile Disturbances: 1-Very Mild Itch/Numbness Auditory Disturbances: 0-None Visual Disturbances: 0-None Headache: 0-None Present CIWA-Ar Total Score: 12 [facility] Progress Note (SOAP) Subjective: nausa, sweats, interrupted sleep, anxiety, tremors Objective: 09/27/17 10:41 Vital Signs - 24 hr 09/26/17 09/26/17 09/27/17 11:18 18:11 00:30 Temperature 96.5 F L 98.2 F Pulse Rate 74 79 Respiratory 18 16 16 Rate Blood Pressure 195/113 189/102 09/27/17 09/27/17 03:30 05:30 Temperature 97.7 F Pulse Rate 64 Respiratory 18 18 Rate Blood Pressure 125/74 Laboratory Tests 09/26/17 17:23 Urine Color Ltyellow Urine Appearance Clear Urine pH 6.0 Ur Specific [place] 1.021 Urine Protein Negative Urine Glucose (UA) Negative Urine Ketones Negative Urine Blood 1+ H Urine Nitrite Negative Urine Bilirubin Negative Urine Urobilinogen 2.0 H Ur Leukocyte Esterase Negative Urine WBC (Auto) 1 Urine RBC (Auto) 9 Ur Epithelial Cells Rare Urine Bacteria Rare Urine Mucus Rare labs pending Assessment: 09/27/17 10:41 withdrawal sx, cont detox, fluids, check labs, encourage ambulation
[2017-09-27] MEDS: ATENOLOL 50 MG TABLET (FP) PO SCH (10:54)
[2017-09-27] MEDS: NIFEdipine E.R. 90 MG TABLET (FP) PO SCH (10:54)
--- NOTE | 2017-09-27 16:20 | PN ---
S Progress Note Note: Psychiatric nurse practitioner: Patient Services Assistant attempted to see patient for psychiatric consultation on 09/26 and 09/27 but patient continued to refuse.
[2017-09-27] MEDS: THIAMINE HCL 100 MG TABLET (FP) PO SCH (23:34)
[2017-09-28] MEDS: chlordiazePOXIDE HCL 25 MG CAPSULE PO SCH ×2 (06:13→11:08)
--- NOTE | 2017-09-28 10:39 | EKG ---
Test Reason : Blood Pressure : / mmHG Vent. Rate : 076 BPM Atrial Rate : 076 BPM P-R Int : 148 ms QRS Dur : 068 ms QT Int : 400 ms P-R-T Axes : 064 060 052 degrees QTc Int : 450 ms NORMAL SINUS RHYTHM SEPTAL INFARCT (CITED ON OR BEFORE 12-DEC-2016) ABNORMAL ECG WHEN COMPARED WITH ECG OF 08-MAY-2017 17:32, NO SIGNIFICANT CHANGE WAS FOUND Confirmed by JAZMÍN FORRESTER, BHAVANA ([id number]) on 09/28/2017 10:38:41 AM Referred By: Confirmed By:BHAVANA NOYOLA MD
[2017-09-28] MEDS: ASPIRIN 81 MG CHEWABLE TABLETS PO SCH (11:06)
[2017-09-28] MEDS: NICOTINE 21 MG/24 HOURS TOPICAL PATCH TD SCH (11:06)
[2017-09-28] MEDS: ATENOLOL 50 MG TABLET (FP) PO SCH (11:07)
[2017-09-28] MEDS: PRENATAL VITAMINS W/ FOLIC ACID TABLET (FP) PO SCH (11:07)
[2017-09-28] MEDS: RITONAVIR 100 MG TABLET PO SCH (11:07)
[2017-09-28] MEDS: DARUNAVIR ETHANOLATE 800 MG TAB PO SCH (11:07)
[2017-09-28] MEDS: NIFEdipine E.R. 90 MG TABLET (FP) PO SCH (11:07)
[2017-09-28] MEDS: RANITIDINE HCL 150 MG TABLET (FP) PO SCH (11:08)
[2017-09-28] MEDS: EMTRICITABINE 200MG/TENOFOVIR 300MG PO SCH (11:08)
[2017-09-28 11:19] VITALS: TEMP 98.1
--- NOTE | 2017-09-28 15:35 | PN ---
S CIWA - CIWA Score Nausea/Vomitin Muscle Tremors: 3 Anxiety: 3 Agitation: 2 Paroxysmal Sweats: 2 Orientation: 0-Oriented Tacttile Disturbances: 1-Very Mild Itch/Numbness Auditory Disturbances: 0-None Visual Disturbances: 0-None Headache: 2-Mild CIWA-Ar Total Score: 15 S Progress Note (SOAP) Subjective: Tremors, anxiety, sleep interruption, muscle aches Objective: 09/28/17 15:34 Vital Signs 09/28/17 10:00 Temperature 98.1 F Pulse Rate 76 Respiratory 18 Rate Blood Pressure 144/81 Laboratory Last Values WBC 4.7 K/mm3 (4.0-10.0) 09/27/17 05:50 RBC 4.67 M/mm3 (3.60-5.2) 09/27/17 05:50 Hgb 13.1 GM/dL (10.7-15.3) D 09/27/17 05:50 Hct 40.1 % (32.4-45.2) 09/27/17 05:50 MCV 85.7 fl (80-96) 09/27/17 05:50 MCH 28.1 pg (25.7-33.7) 09/27/17 05:50 MCHC 32.8 g/dl (32.0-36.0) 09/27/17 05:50 RDW 13.3 % (11.6-15.6) 09/27/17 05:50 Plt Count 228 K/MM3 (134-434) 09/27/17 05:50 MPV 10.2 fl (7.5-11.1) 09/27/17 05:50 Sodium 142 mmol/L (136-145) 09/27/17 05:50 Potassium 3.7 mmol/L (3.5-5.1) 09/27/17 05:50 Chloride 105 mmol/L (98-107) 09/27/17 05:50 Carbon Dioxide 30 mmol/L (21-32) 09/27/17 05:50 Anion Gap 7 (8-16) L 09/27/17 05:50 BUN 21 mg/dL (7-18) H 09/27/17 05:50 Creatinine 0.9 mg/dL (0.55-1.02) 09/27/17 05:50 Creat Clearance w eGFR > 60 (>60) 09/27/17 05:50 Random Glucose 109 mg/dL (74-106) H 09/27/17 05:50 Calcium 9.2 mg/dL (8.5-10.1) 09/27/17 05:50 Total Bilirubin 0.2 mg/dL (0.2-1.0) D 09/27/17 05:50 AST 17 U/L (15-37) 09/27/17 05:50 ALT 21 U/L (12-78) 09/27/17 05:50 Alkaline Phosphatase 101 U/L (45-117) 09/27/17 05:50 Total Protein 7.8 g/dl (6.4-8.2) 09/27/17 05:50 Albumin 3.6 g/dl (3.4-5.0) 09/27/17 05:50 Urine Color Ltyellow 09/26/17 17:23 Urine Appearance Clear 09/26/17 17:23 Urine pH 6.0 (5.0-8.0) 09/26/17 17:23 Ur Specific [place] 1.021 (1.001-1.035) 09/26/17 17:23 Urine Protein Negative (NEGATIVE) 09/26/17 17:23 Urine Glucose (UA) Negative (NEGATIVE) 09/26/17 17:23 Urine Ketones Negative (NEGATIVE) 09/26/17 17:23 Urine Blood 1+ (NEGATIVE) H 09/26/17 17:23 Urine Nitrite Negative (NEGATIVE) 09/26/17 17:23 Urine Bilirubin Negative (<2.0 mg/dL) 09/26/17 17:23 Urine Urobilinogen 2.0 mg/dL (0.2-1.0) H 09/26/17 17:23 Ur Leukocyte Esterase Negative (NEGATIVE) 09/26/17 17:23 Urine WBC (Auto) 1 /hpf (3-5) 09/26/17 17:23 Urine RBC (Auto) 9 /hpf (0-3) 09/26/17 17:23 Ur Epithelial Cells Rare /HPF (FEW) 09/26/17 17:23 Urine Bacteria Rare /hpf (NONE SEEN) 09/26/17 17:23 Urine Mucus Rare 09/26/17 17:23 RPR Titer Nonreactive (NONREACTIVE) 09/27/17 05:50 Labs noted Assessment: 09/28/17 15:34 Withdrawal sx Plan: Continue detox
[2017-09-28] MEDS ORDERED: chlordiazePOXIDE 5 MG CAPSULE PO SCH (17:00)
[2017-09-28 18:02] VITALS: BP 140/78; PULSE 70
--- NOTE | 2017-09-28 19:03 | DS ---
[facility] Detox Discharge Summary Admission Date: 09/26/17 Discharge Date: 09/28/17 - History Present History: Alcohol Dependence, Cannabis Dependence, Cocaine Dependence Pertinent Past History: Patient is a 57 year old woman with multiple medical problems alcohol drug dependence with several detox treatments in the past - Physical Exam Results Vital Signs: Vital Signs Temperature 98.1 F 09/28/17 18:02 Pulse Rate 70 09/28/17 18:02 Respiratory Rate 18 09/28/17 18:02 Blood Pressure 140/78 09/28/17 18:02 O2 Sat by Pulse Oximetry (%) Pertinent Admission Physical Exam Findings: withdrawal sx Laboratory Last Values WBC 4.7 K/mm3 (4.0-10.0) 09/27/17 05:50 RBC 4.67 M/mm3 (3.60-5.2) 09/27/17 05:50 Hgb 13.1 GM/dL (10.7-15.3) D 09/27/17 05:50 Hct 40.1 % (32.4-45.2) 09/27/17 05:50 MCV 85.7 fl (80-96) 09/27/17 05:50 MCH 28.1 pg (25.7-33.7) 09/27/17 05:50 MCHC 32.8 g/dl (32.0-36.0) 09/27/17 05:50 RDW 13.3 % (11.6-15.6) 09/27/17 05:50 Plt Count 228 K/MM3 (134-434) 09/27/17 05:50 MPV 10.2 fl (7.5-11.1) 09/27/17 05:50 Sodium 142 mmol/L (136-145) 09/27/17 05:50 Potassium 3.7 mmol/L (3.5-5.1) 09/27/17 05:50 Chloride 105 mmol/L (98-107) 09/27/17 05:50 Carbon Dioxide 30 mmol/L (21-32) 09/27/17 05:50 Anion Gap 7 (8-16) L 09/27/17 05:50 BUN 21 mg/dL (7-18) H 09/27/17 05:50 Creatinine 0.9 mg/dL (0.55-1.02) 09/27/17 05:50 Creat Clearance w eGFR > 60 (>60) 09/27/17 05:50 Random Glucose 109 mg/dL (74-106) H 09/27/17 05:50 Calcium 9.2 mg/dL (8.5-10.1) 09/27/17 05:50 Total Bilirubin 0.2 mg/dL (0.2-1.0) D 09/27/17 05:50 AST 17 U/L (15-37) 09/27/17 05:50 ALT 21 U/L (12-78) 09/27/17 05:50 Alkaline Phosphatase 101 U/L (45-117) 09/27/17 05:50 Total Protein 7.8 g/dl (6.4-8.2) 09/27/17 05:50 Albumin 3.6 g/dl (3.4-5.0) 09/27/17 05:50 Urine Color Ltyellow 09/26/17 17:23 Urine Appearance Clear 09/26/17 17:23 Urine pH 6.0 (5.0-8.0) 09/26/17 17:23 Ur Specific [place] 1.021 (1.001-1.035) 09/26/17 17:23 Urine Protein Negative (NEGATIVE) 09/26/17 17:23 Urine Glucose (UA) Negative (NEGATIVE) 09/26/17 17:23 Urine Ketones Negative (NEGATIVE) 09/26/17 17:23 Urine Blood 1+ (NEGATIVE) H 09/26/17 17:23 Urine Nitrite Negative (NEGATIVE) 09/26/17 17:23 Urine Bilirubin Negative (<2.0 mg/dL) 09/26/17 17:23 Urine Urobilinogen 2.0 mg/dL (0.2-1.0) H 09/26/17 17:23 Ur Leukocyte Esterase Negative (NEGATIVE) 09/26/17 17:23 Urine WBC (Auto) 1 /hpf (3-5) 09/26/17 17:23 Urine RBC (Auto) 9 /hpf (0-3) 09/26/17 17:23 Ur Epithelial Cells Rare /HPF (FEW) 09/26/17 17:23 Urine Bacteria Rare /hpf (NONE SEEN) 09/26/17 17:23 Urine Mucus Rare 09/26/17 17:23 RPR Titer Nonreactive (NONREACTIVE) 09/27/17 05:50 Labs noted - Medication Discharge Medications: Ambulatory Orders Atenolol [Tenormin -] 50 mg PO DAILY #30 mg 12/20/16 Darunavir Ethanolate [Prezista] 800 mg PO DAILY #30 mg 12/20/16 Emtricitabine/Tenofovir [Truvada -] 1 tab PO DAILY #30 mg 12/20/16 Lisinopril [Prinivil -] 40 mg PO DAILY #30 mg 12/20/16 Nifedipine ER [Procardia XL -] 90 mg PO DAILY #30 mg 12/20/16 Ritonavir [Norvir -] 100 mg PO DAILY #30 mg 12/20/16 Citalopram Hydrobromide [Celexa -] 10 mg PO DAILY #30 tablet 03/28/17 Quetiapine Fumarate [Seroquel] 100 mg PO HS #30 tablet 03/28/17 Aspirin [ASA -] 81 mg PO DAILY tab.chew 03/31/17 Ranitidine [Zantac -] 150 mg PO BID tablet 03/31/17 Albuterol Sulfate Inhaler - [Ventolin Hfa Inhaler -] 2 inh PO Q4H PRN 05/08/17 - Diagnosis (1) Alcohol dependence with uncomplicated withdrawal Current Visit: Yes Status: Acute (2) Drug-induced mood disorder Current Visit: Yes Status: Acute (3) Nicotine dependence Current Visit: No Status: Acute Qualifiers: Nicotine product type: cigarettes Substance use status: uncomplicated Qualified Code(s): F17.210 - Nicotine dependence, cigarettes, uncomplicated (4) Old [place] (myocardial infarction) Current Visit: No Status: Chronic (5) Old cerebrovascular accident (CVA) without late effect Current Visit: No Status: Chronic (6) Asthma Current Visit: No Status: Chronic Qualifiers: Asthma severity: mild Asthma persistence: intermittent Asthma complication type: uncomplicated Qualified Code(s): J45.20 - Mild intermittent asthma, uncomplicated (7) Cannabis dependence Current Visit: Yes Status: Chronic (8) Cocaine dependence Current Visit: No Status: Chronic Qualifiers: Substance use status: uncomplicated Qualified Code(s): F14.20 - Cocaine dependence, uncomplicated (9) GERD (gastroesophageal reflux disease) Current Visit: Yes Status: Chronic Qualifiers: Esophagitis presence: without esophagitis (10) HIV disease Current Visit: Yes Status: Chronic (11) HTN (hypertension) Current Visit: Yes Status: Chronic Qualifiers: (12) Major depressive disorder, recurrent, severe with psychotic features Current Visit: Yes Status: Chronic - AMA Did Patient Leave Against Medical Advice: Yes
[2017-09-29] MEDS ORDERED: chlordiazePOXIDE HCL 10 MG CAPSULE PO SCH (17:00)
== END 2017-09-28 17:14 | disposition left against medical advice (07) | DRG 770 ==
LOC: YASAS 11:02 → Y6N 16:02
PROVIDERS: ADMIT Internal Medicine; ATTEND Internal Medicine
PROC: HZ2ZZZZ Detoxification Services for Substance Abuse Treatment (ICD-10-PCS; principal; 2017-09-26)
DX: F10.230 Alcohol dependence with withdrawal, uncomplicated (principal); F14.20 Cocaine dependence, uncomplicated; F12.20 Cannabis dependence, uncomplicated; F17.210 Nicotine dependence, cigarettes, uncomplicated; F33.3 Major depressive disorder, recurrent, severe with psychotic symptoms; F19.24 Other psychoactive substance dependence with psychoactive substance-induced mood disorder; Z21 Asymptomatic human immunodeficiency virus [HIV] infection status; I25.2 Old myocardial infarction; Z86.73 Personal history of transient ischemic attack (TIA), and cerebral infarction without residual deficits; J45.20 Mild intermittent asthma, uncomplicated; R63.4 Abnormal weight loss; Z68.22 Body mass index [BMI] 22.0-22.9, adult
CPT/HCPCS: 36415; 80053; 81003; 81015; 85027; 86593; 93005; 93010; J0735

== ENCOUNTER 2017-11-30 10:36 | Inpatient (IN) | payer OTHER ==
[2017-11-30 11:09] VITALS: BMI 22.6
--- NOTE | 2017-11-30 11:48 | HP ---
CIWA Score - CIWA Score Nausea/Vomitin-Mild Nausea/No Vomiting Muscle Tremors: 3 Anxiety: 3 Agitation: 0-Normal Activity Paroxysmal Sweats: 1-Minimal Palms Moist Orientation: 0-Oriented Tacttile Disturbances: 1-Very Mild Itch/Numbness Auditory Disturbances: 1-Very Mild Visual Disturbances: 1-Very Mild Sensitivity Headache: 2-Mild CIWA-Ar Total Score: 13 Admission ROS BHS - HPI Chief Complaint: I can't stop drinking, I want to clear my mind, start thinking and doing right Allergies/Adverse Reactions: Allergies Allergy/AdvReac Type Severity Reaction Status Date / Time No Known Allergies Allergy Verified 11/30/17 11:15 History of Present Illness: 57 yo woman here for detox from alcohol -denies seizures or black outs, this is one of several admissions for treatment - last time 09/26/17 - left AMA - she does not remember that. Exam Limitations: Clinical Condition - Ebola screening Have you traveled outside of the country in the last 21 days: No (N) Have you had contact with anyone from an Ebola affected area: No Have you been sick,other than usual withdrawal symptoms: No Do you have a fever: No - Review of Systems Constitutional: Chills, Loss of Appetite, Weakness EENT: reports: No Symptoms Reported Respiratory: reports: No Symptoms reported Cardiac: reports: No Symptoms Reported GI: reports: Nausea, Poor Appetite, Poor Fluid Intake : reports: Burning, Frequency Musculoskeletal: reports: No Symptoms Reported Integumentary: reports: Dryness Neuro: reports: Headache Endocrine: reports: No Symptoms Reported Hematology: reports: No Symptoms Reported Psychiatric: reports: Judgement Intact, Mood/Affect Appropiate, Orientated x3, Anxious Other Systems: Reviewed and Negative Patient History - Patient Medical History Hx Anemia: No Hx Asthma: Yes (on inhaler) Hx Chronic Obstructive Pulmonary Disease (COPD): No Hx Cancer: No Hx Cardiac Disorders: No Hx Congestive Heart Failure: No Hx Hypertension: Yes (ON MEDICATION) Hx Hypercholesterolemia: No Hx Pacemaker: No HX Cerebrovascular Accident: Yes (old cva in 2014) Hx Seizures: No Hx Dementia: No Hx Diabetes: No Hx Gastrointestinal Disorders: No Hx Liver Disease: No Hx Genitourinary Disorders: No Hx Sexually Transmitted Disorders: No Hx Renal Disease (ESRD): No Hx Thyroid Disease: No Hx Human Immunodeficiency Virus (HIV): Yes (diagnosed 1997,NON COMPLAINT WITH MEDS, SHINGLES IN 2013) Hx Hepatitis C: No Hx Depression: Yes (denies ever being hospitalized) Hx Suicide Attempt: Yes (history - none for years) Hx Bipolar Disorder: No Hx Schizophrenia: No - Patient Surgical History Past Surgical History: Yes Hx Neurologic Surgery: No Hx Cataract Extraction: No Hx Cardiac Surgery: No Hx Lung Surgery: No Hx Breast Surgery: Yes (Cyst removal on right breast 1979) Hx Breast Biopsy: No Hx Abdominal Surgery: No Hx Appendectomy: No Hx Cholecystectomy: No Hx Genitourinary Surgery: No Hx Section: No Hx Orthopedic Surgery: No Hx Hysterectomy: No Anesthesia Reaction: No - PPD History Previous Implant?: Yes Documented Results: Negative w/proof Implanted On Prior R Admission?: Yes Date: 12/12/16 Results: NEGATIVE PPD to be Administered?: No - Reproductive History Patient is a Female of Child Bearing Age (11 -55 yrs old): No Last Menstrual Period: 03/27/10 Patient : No - Smoking Cessation Smoking history: Current every day smoker Have you smoked in the past 12 months: Yes Aproximately how many cigarettes per day: 10 Cigars Per Day: 0 Hx Chewing Tobacco Use: No Initiated information on smoking cessation: Yes 'Breaking Loose' booklet given: 11/30/17 (give on floor) - Substance & Tx. History Hx Alcohol Use: Yes Hx Substance Use: Yes Substance Use Type: Alcohol, Cocaine Hx Substance Use Treatment: Yes (detox, rehab) - Substances Abused Alcohol Route: Oral Frequency: Daily Amount used: 1 PINT OF VODKA; six back 24 oz beer Age of first use: 28 Date of Last Use: 11/30/17 Crack Route: Smoking Frequency: Daily Amount used: $100-$200 Age of first use: 28 Date of Last Use: 11/29/17 Family Disease History - Family Disease History Family Disease History: Heart Disease: Father (/ ALCOHOLISM), Mother ( / ALCOHOLISM), Brother (four - one - NC), Other: Father, Mother , Brother, Sister (five - living - healthy), Daughter (three -adult - healthy) Admission Physical Exam BHS - Vital Signs Vital Signs: Vital Signs - 24 hr 11/30/17 11:07 Temperature 96.9 F L Pulse Rate 92 H Respiratory 19 Rate Blood Pressure 159/99 - Physical General Appearance: Yes: Nourished, Appropriately Dressed, Moderate Distress, Thin, Anxious HEENTM: Yes: EOMI, Hearing grossly Normal, Normal ENT Inspection, Normocephalic , Normal Voice, Other (no teeth) Respiratory: Yes: Normal Breath Sounds, No Respiratory Distress Neck: Yes: No masses,lesions,Nodules Breast: Yes: Breast Exam Deferred Cardiology: Yes: Regular Rhythm, Regular Rate Abdominal: Yes: Flat, Soft Genitourinary: Yes: Burning, Frequency Back: Yes: Normal Inspection Musculoskeletal: Yes: full range of Motion, Gait Steady Extremities: Yes: Normal Inspection, Non-Tender Neurological: Yes: Fully Oriented, Alert, Normal Mood/Affect, Normal Response Integumentary: Yes: Normal Color, Dry, Warm Lymphatic: Yes: Within Normal Limits - Diagnostic (1) Alcohol dependence with uncomplicated withdrawal Current Visit: Yes Status: Acute (2) Cocaine dependence Current Visit: Yes Status: Chronic Qualifiers: Substance use status: uncomplicated Qualified Code(s): F14.20 - Cocaine dependence, uncomplicated (3) HIV disease Current Visit: Yes Status: Chronic (4) HTN (hypertension) Current Visit: Yes Status: Chronic Qualifiers: Hypertension type: essential hypertension (5) Nicotine dependence Current Visit: No Status: Acute Qualifiers: Nicotine product type: cigarettes Substance use status: uncomplicated Qualified Code(s): F17.210 - Nicotine dependence, cigarettes, uncomplicated (6) Asthma Current Visit: No Status: Chronic Qualifiers: Asthma severity: mild Asthma persistence: intermittent Asthma complication type: uncomplicated Qualified Code(s): J45.20 - Mild intermittent asthma, uncomplicated BHS Breath Alcohol Content Breath Alcohol Content: 0.073 Urine Pregancy Test - Result Urine Test Results: Negative- NO Line Present Urine Drug Screen - Results Drug Screen Negative: No Urine Drug Screen Results: ANTONIO-Cocaine
[2017-11-30] MEDS ORDERED: ACETAMINOPHEN 325 MG TABLET (FP) PO PRN (11:51)
[2017-11-30] MEDS ORDERED: chlordiazePOXIDE HCL 25 MG CAPSULE PO PRN (11:51)
[2017-11-30] MEDS ORDERED: MAG HYDROX/AL HYDROX/SIMETH 30 ML UNIT-DOSE CUP PO PRN (11:51)
[2017-11-30] MEDS ORDERED: MAGNESIUM CITRATE 300 ML BOTTLE PO PRN (11:51)
[2017-11-30] MEDS ORDERED: P-EPHED 60MG/TRIPROLIDI 2.5MG TABLET PO PRN (11:51)
[2017-11-30] MEDS ORDERED: LOPERAMIDE HCL 2 MG CAPSULE PO PRN (11:51)
[2017-11-30] MEDS ORDERED: MAGNESIUM HYDROX 2400MG/30ML ORAL SUSPENSION 30 ML CUP PO PRN (11:51)
[2017-11-30] MEDS ORDERED: MENTHOL/PHENOL 1 EACH UD MM PRN (11:51)
[2017-11-30] MEDS ORDERED: guaiFENesin/D-METHORPHAN HB 10 ML UNIT-DOSE CUPS PO PRN (11:51)
[2017-11-30] MEDS ORDERED: ALBUTEROL SO4 18 GM HFA INHALER IH PRN (11:53)
[2017-11-30] MEDS ORDERED: chlordiazePOXIDE HCL 25 MG CAPSULE PO ONE (13:00)
--- NOTE | 2017-11-30 14:47 | EKG ---
Test Reason : Blood Pressure : / mmHG Vent. Rate : 099 BPM Atrial Rate : 099 BPM P-R Int : 130 ms QRS Dur : 074 ms QT Int : 366 ms P-R-T Axes : 061 042 059 degrees QTc Int : 469 ms NORMAL SINUS RHYTHM POSSIBLE LEFT ATRIAL ENLARGEMENT SEPTAL INFARCT (CITED ON OR BEFORE 12-DEC-2016) ABNORMAL ECG WHEN COMPARED WITH ECG OF 26-SEP-2017 17:19, NO SIGNIFICANT CHANGE WAS FOUND Confirmed by MD Simón, Emir ([id number]) on 11/30/2017 2:47:18 PM Referred By: Confirmed By:Emir Gr MD
[2017-11-30] MEDS: NIFEdipine E.R. 90 MG TABLET (FP) PO SCH (15:01)
[2017-11-30] MEDS: EMTRICITABINE 200MG/TENOFOVIR 300MG PO SCH (15:02)
[2017-11-30] MEDS: RITONAVIR 100 MG TABLET PO SCH (15:02)
[2017-11-30] MEDS: ATENOLOL 50 MG TABLET (FP) PO SCH (15:03)
[2017-11-30] MEDS: chlordiazePOXIDE HCL 25 MG CAPSULE PO SCH ×2 (17:18→23:13)
[2017-11-30] MEDS: hydrOXYzine PAMOATE 25 MG CAPSULE (FP) PO PRN ×2 (17:18→23:14)
[2017-11-30 17:38] LABS: URINE APPEARANCE CLEAR; URINE BILIRUBIN NEGATIVE (<2.0 mg/dL); URINE BLOOD NEGATIVE (NEGATIVE); URINE COLOR STRAW; URINE GLUCOSE (UA) NEGATIVE (NEGATIVE); URINE KETONE NEGATIVE (NEGATIVE); URINE LEUK ESTERASE NEGATIVE (NEGATIVE); URINE NITRITE NEGATIVE (NEGATIVE); URINE PROTEIN NEGATIVE (NEGATIVE); URINE UROBILINOGEN NEGATIVE mg/dL (0.2-1.0)
[2017-11-30] MEDS ORDERED: MELATONIN 5 MG TABLETS PO PRN (22:00)
[2017-11-30] MEDS: THIAMINE HCL 100 MG TABLET (FP) PO SCH (23:13)
[2017-12-01] MEDS: chlordiazePOXIDE HCL 25 MG CAPSULE PO SCH ×4 (06:07→22:21)
[2017-12-01 10:00] LABS: HEMATOCRIT 41.9 % (32.4-45.2); HEMOGLOBIN 13.6 GM/dL (10.7-15.3); MCH 27.9 pg (25.7-33.7); MCHC 32.5 g/dl (32.0-36.0); MEAN CELL VOLUME 85.8 fl (80-96); MEAN PLT VOLUME 9.6 fl (7.5-11.1); PLATELET COUNT 245 K/MM3 (134-434); RBC 4.88 M/mm3 (3.60-5.2); RDW 13.7 % (11.6-15.6); WHITE BLOOD COUNT 5.5 K/mm3 (4.0-10.0)
[2017-12-01 10:13] LABS: CHLORIDE 109 mmol/L (98-107); POTASSIUM 3.8 mmol/L (3.5-5.1); SODIUM 139 mmol/L (136-145)
[2017-12-01] MEDS: ATENOLOL 50 MG TABLET (FP) PO SCH (10:24)
[2017-12-01] MEDS: PRENATAL VITAMINS W/ FOLIC ACID TABLET (FP) PO SCH (10:24)
[2017-12-01] MEDS: ASPIRIN 81 MG CHEWABLE TABLETS PO SCH (10:24)
[2017-12-01] MEDS: NIFEdipine E.R. 90 MG TABLET (FP) PO SCH (10:24)
[2017-12-01] MEDS: RITONAVIR 100 MG TABLET PO SCH (10:25)
[2017-12-01] MEDS: EMTRICITABINE 200MG/TENOFOVIR 300MG PO SCH (10:25)
[2017-12-01 10:44] LABS: ALBUMIN 3.2 g/dl (3.4-5.0); ALK PHOS 110 U/L (45-117); ANION GAP 4 (8-16); BILIRUBIN,TOTAL 0.2 mg/dL (0.2-1.0); BLOOD UREA NITROGEN 20 mg/dL (7-18); CALCIUM 8.8 mg/dL (8.5-10.1); CO2 26 mmol/L (21-32); CREATININE 0.7 mg/dL (0.55-1.02); GLUCOSE,RANDOM 98 mg/dL (74-106); SGOT/AST 10 U/L (15-37); SGPT/ALT 18 U/L (12-78); TOT PROT 8.3 g/dl (6.4-8.2)
--- NOTE | 2017-12-01 11:57 | PN ---
[facility] CIWA - CIWA Score Nausea/Vomitin-No Nausea/No Vomiting Muscle Tremors: 4-Moderate,w/Arms Extend Anxiety: 3 Agitation: 3 Paroxysmal Sweats: 1-Minimal Palms Moist Orientation: 0-Oriented Tacttile Disturbances: 1-Very Mild Itch/Numbness Auditory Disturbances: 0-None Visual Disturbances: 0-None Headache: 0-None Present CIWA-Ar Total Score: 12 BHS Progress Note (SOAP) Subjective: tremor sweat anxiety restlessness trouble sleep at night Objective: 12/01/17 11:53 Vital Signs Temperature 96.6 F L 12/01/17 10:00 Pulse Rate 70 12/01/17 10:00 Respiratory Rate 16 12/01/17 10:00 Blood Pressure 126/74 12/01/17 10:00 O2 Sat by Pulse Oximetry (%) Laboratory Last Values WBC 5.5 K/mm3 (4.0-10.0) 12/01/17 07:50 RBC 4.88 M/mm3 (3.60-5.2) 12/01/17 07:50 Hgb 13.6 GM/dL (10.7-15.3) 12/01/17 07:50 Hct 41.9 % (32.4-45.2) 12/01/17 07:50 MCV 85.8 fl (80-96) 12/01/17 07:50 MCH 27.9 pg (25.7-33.7) 12/01/17 07:50 MCHC 32.5 g/dl (32.0-36.0) 12/01/17 07:50 RDW 13.7 % (11.6-15.6) 12/01/17 07:50 Plt Count 245 K/MM3 (134-434) 12/01/17 07:50 MPV 9.6 fl (7.5-11.1) 12/01/17 07:50 Sodium 139 mmol/L (136-145) 12/01/17 07:50 Potassium 3.8 mmol/L (3.5-5.1) 12/01/17 07:50 Chloride 109 mmol/L (98-107) H 12/01/17 07:50 Carbon Dioxide 26 mmol/L (21-32) 12/01/17 07:50 Anion Gap 4 (8-16) L 12/01/17 07:50 BUN 20 mg/dL (7-18) H 12/01/17 07:50 Creatinine 0.7 mg/dL (0.55-1.02) 12/01/17 07:50 Creat Clearance w eGFR > 60 (>60) 12/01/17 07:50 Random Glucose 98 mg/dL (74-106) 12/01/17 07:50 Calcium 8.8 mg/dL (8.5-10.1) 12/01/17 07:50 Total Bilirubin 0.2 mg/dL (0.2-1.0) 12/01/17 07:50 AST 10 U/L (15-37) L 12/01/17 07:50 ALT 18 U/L (12-78) 12/01/17 07:50 Alkaline Phosphatase 110 U/L (45-117) 12/01/17 07:50 Total Protein 8.3 g/dl (6.4-8.2) H 12/01/17 07:50 Albumin 3.2 g/dl (3.4-5.0) L 12/01/17 07:50 Urine Color Straw 11/30/17 Unknown Urine Appearance Clear 11/30/17 Unknown Urine pH 7.0 (5.0-8.0) 11/30/17 Unknown Ur Specific [place] 1.006 (1.001-1.035) 11/30/17 Unknown Urine Protein Negative (NEGATIVE) 11/30/17 Unknown Urine Glucose (UA) Negative (NEGATIVE) 11/30/17 Unknown Urine Ketones Negative (NEGATIVE) 11/30/17 Unknown Urine Blood Negative (NEGATIVE) 11/30/17 Unknown Urine Nitrite Negative (NEGATIVE) 11/30/17 Unknown Urine Bilirubin Negative (<2.0 mg/dL) 11/30/17 Unknown Urine Urobilinogen Negative mg/dL (0.2-1.0) 11/30/17 Unknown Ur Leukocyte Esterase Negative (NEGATIVE) 11/30/17 Unknown RPR Titer Nonreactive (NONREACTIVE) 12/01/17 07:50 lab noted increase oral fluid Assessment: 12/01/17 11:57 withdrawal sx 12/01/17 11:57 bun 20 Plan: continue detox increase oral fluid
[2017-12-01] MEDS: THIAMINE HCL 100 MG TABLET (FP) PO SCH (22:20)
[2017-12-02] MEDS: chlordiazePOXIDE HCL 25 MG CAPSULE PO SCH ×2 (06:12→10:48)
[2017-12-02] MEDS: PRENATAL VITAMINS W/ FOLIC ACID TABLET (FP) PO SCH (10:47)
[2017-12-02] MEDS: ATENOLOL 50 MG TABLET (FP) PO SCH (10:47)
[2017-12-02] MEDS: EMTRICITABINE 200MG/TENOFOVIR 300MG PO SCH (10:48)
[2017-12-02] MEDS: RITONAVIR 100 MG TABLET PO SCH (10:48)
[2017-12-02] MEDS: ASPIRIN 81 MG CHEWABLE TABLETS PO SCH (10:48)
[2017-12-02] MEDS: NIFEdipine E.R. 90 MG TABLET (FP) PO SCH (10:48)
--- NOTE | 2017-12-02 12:52 | PN ---
[facility] CIWA - CIWA Score Nausea/Vomitin-Mild Nausea/No Vomiting Muscle Tremors: 3 Anxiety: 3 Agitation: 3 Paroxysmal Sweats: 1-Minimal Palms Moist Orientation: 0-Oriented Tacttile Disturbances: 0-None Auditory Disturbances: 0-None Visual Disturbances: 0-None Headache: 0-None Present CIWA-Ar Total Score: 11 S Progress Note (SOAP) Subjective: sweat tremor anxiety irritable restlessness Objective: 12/02/17 12:50 Vital Signs Temperature 98.1 F 12/02/17 10:00 Pulse Rate 77 12/02/17 10:00 Respiratory Rate 17 12/02/17 10:00 Blood Pressure 135/82 12/02/17 10:00 O2 Sat by Pulse Oximetry (%) Laboratory Last Values WBC 5.5 K/mm3 (4.0-10.0) 12/01/17 07:50 RBC 4.88 M/mm3 (3.60-5.2) 12/01/17 07:50 Hgb 13.6 GM/dL (10.7-15.3) 12/01/17 07:50 Hct 41.9 % (32.4-45.2) 12/01/17 07:50 MCV 85.8 fl (80-96) 12/01/17 07:50 MCH 27.9 pg (25.7-33.7) 12/01/17 07:50 MCHC 32.5 g/dl (32.0-36.0) 12/01/17 07:50 RDW 13.7 % (11.6-15.6) 12/01/17 07:50 Plt Count 245 K/MM3 (134-434) 12/01/17 07:50 MPV 9.6 fl (7.5-11.1) 12/01/17 07:50 Sodium 139 mmol/L (136-145) 12/01/17 07:50 Potassium 3.8 mmol/L (3.5-5.1) 12/01/17 07:50 Chloride 109 mmol/L (98-107) H 12/01/17 07:50 Carbon Dioxide 26 mmol/L (21-32) 12/01/17 07:50 Anion Gap 4 (8-16) L 12/01/17 07:50 BUN 20 mg/dL (7-18) H 12/01/17 07:50 Creatinine 0.7 mg/dL (0.55-1.02) 12/01/17 07:50 Creat Clearance w eGFR > 60 (>60) 12/01/17 07:50 Random Glucose 98 mg/dL (74-106) 12/01/17 07:50 Calcium 8.8 mg/dL (8.5-10.1) 12/01/17 07:50 Total Bilirubin 0.2 mg/dL (0.2-1.0) 12/01/17 07:50 AST 10 U/L (15-37) L 12/01/17 07:50 ALT 18 U/L (12-78) 12/01/17 07:50 Alkaline Phosphatase 110 U/L (45-117) 12/01/17 07:50 Total Protein 8.3 g/dl (6.4-8.2) H 12/01/17 07:50 Albumin 3.2 g/dl (3.4-5.0) L 12/01/17 07:50 Urine Color Straw 11/30/17 Unknown Urine Appearance Clear 11/30/17 Unknown Urine pH 7.0 (5.0-8.0) 11/30/17 Unknown Ur Specific [place] 1.006 (1.001-1.035) 11/30/17 Unknown Urine Protein Negative (NEGATIVE) 11/30/17 Unknown Urine Glucose (UA) Negative (NEGATIVE) 11/30/17 Unknown Urine Ketones Negative (NEGATIVE) 11/30/17 Unknown Urine Blood Negative (NEGATIVE) 11/30/17 Unknown Urine Nitrite Negative (NEGATIVE) 11/30/17 Unknown Urine Bilirubin Negative (<2.0 mg/dL) 11/30/17 Unknown Urine Urobilinogen Negative mg/dL (0.2-1.0) 11/30/17 Unknown Ur Leukocyte Esterase Negative (NEGATIVE) 11/30/17 Unknown RPR Titer Nonreactive (NONREACTIVE) 12/01/17 07:50 lab noted Assessment: 12/02/17 12:51 withdrawal sx Plan: continue detox
[2017-12-02] MEDS: DARUNAVIR ETHANOLATE 800 MG TAB PO SCH (13:32)
[2017-12-02] MEDS: chlordiazePOXIDE 5 MG CAPSULE PO SCH ×2 (17:29→22:35)
[2017-12-02] MEDS: THIAMINE HCL 100 MG TABLET (FP) PO SCH (22:35)
[2017-12-03] MEDS: chlordiazePOXIDE 5 MG CAPSULE PO SCH (05:27)
--- NOTE | 2017-12-03 09:13 | DS ---
[facility] Detox Discharge Summary Admission Date: 11/30/17 Discharge Date: 12/03/17 - History Present History: Alcohol Dependence Additional Comments: 57 years old female admitted 11/30/17 for alcohol withdrawal sx reported feeling better and preferred to terminate alcohol detox regimen and aftercare [facility] patient stated that her is in the hospital and must return home for assistance alert oriented x 3 no acute distress - Physical Exam Results Vital Signs: Vital Signs Temperature 97.7 F 12/03/17 06:00 Pulse Rate 82 12/03/17 06:00 Respiratory Rate 18 12/03/17 06:00 Blood Pressure 131/78 12/03/17 06:00 O2 Sat by Pulse Oximetry (%) Pertinent Admission Physical Exam Findings: alcohol withdrawal sx Vital Signs Temperature 97.7 F 12/03/17 06:00 Pulse Rate 82 12/03/17 06:00 Respiratory Rate 18 12/03/17 06:00 Blood Pressure 131/78 12/03/17 06:00 O2 Sat by Pulse Oximetry (%) Vital Signs Temperature 97.7 F 12/03/17 06:00 Pulse Rate 82 12/03/17 06:00 Respiratory Rate 18 12/03/17 06:00 Blood Pressure 131/78 12/03/17 06:00 O2 Sat by Pulse Oximetry (%) Laboratory Last Values WBC 5.5 K/mm3 (4.0-10.0) 12/01/17 07:50 RBC 4.88 M/mm3 (3.60-5.2) 12/01/17 07:50 Hgb 13.6 GM/dL (10.7-15.3) 12/01/17 07:50 Hct 41.9 % (32.4-45.2) 12/01/17 07:50 MCV 85.8 fl (80-96) 12/01/17 07:50 MCH 27.9 pg (25.7-33.7) 12/01/17 07:50 MCHC 32.5 g/dl (32.0-36.0) 12/01/17 07:50 RDW 13.7 % (11.6-15.6) 12/01/17 07:50 Plt Count 245 K/MM3 (134-434) 12/01/17 07:50 MPV 9.6 fl (7.5-11.1) 12/01/17 07:50 Sodium 139 mmol/L (136-145) 12/01/17 07:50 Potassium 3.8 mmol/L (3.5-5.1) 12/01/17 07:50 Chloride 109 mmol/L (98-107) H 12/01/17 07:50 Carbon Dioxide 26 mmol/L (21-32) 12/01/17 07:50 Anion Gap 4 (8-16) L 12/01/17 07:50 BUN 20 mg/dL (7-18) H 12/01/17 07:50 Creatinine 0.7 mg/dL (0.55-1.02) 12/01/17 07:50 Creat Clearance w eGFR > 60 (>60) 12/01/17 07:50 Random Glucose 98 mg/dL (74-106) 12/01/17 07:50 Calcium 8.8 mg/dL (8.5-10.1) 12/01/17 07:50 Total Bilirubin 0.2 mg/dL (0.2-1.0) 12/01/17 07:50 AST 10 U/L (15-37) L 12/01/17 07:50 ALT 18 U/L (12-78) 12/01/17 07:50 Alkaline Phosphatase 110 U/L (45-117) 12/01/17 07:50 Total Protein 8.3 g/dl (6.4-8.2) H 12/01/17 07:50 Albumin 3.2 g/dl (3.4-5.0) L 12/01/17 07:50 Urine Color Straw 11/30/17 Unknown Urine Appearance Clear 11/30/17 Unknown Urine pH 7.0 (5.0-8.0) 11/30/17 Unknown Ur Specific [place] 1.006 (1.001-1.035) 11/30/17 Unknown Urine Protein Negative (NEGATIVE) 11/30/17 Unknown Urine Glucose (UA) Negative (NEGATIVE) 11/30/17 Unknown Urine Ketones Negative (NEGATIVE) 11/30/17 Unknown Urine Blood Negative (NEGATIVE) 11/30/17 Unknown Urine Nitrite Negative (NEGATIVE) 11/30/17 Unknown Urine Bilirubin Negative (<2.0 mg/dL) 11/30/17 Unknown Urine Urobilinogen Negative mg/dL (0.2-1.0) 11/30/17 Unknown Ur Leukocyte Esterase Negative (NEGATIVE) 11/30/17 Unknown RPR Titer Nonreactive (NONREACTIVE) 12/01/17 07:50 lab noted - Treatment Hospital Course: Detox Protocol Followed, Detoxed Safely, Responded well, Discharged Condition Good, Rehab Referral Accepted Patient has Accepted a Rehab Referral to: [facility] - Medication Discharge Medications: Ambulatory Orders Darunavir Ethanolate [Prezista] 800 mg PO DAILY #30 mg 12/20/16 Emtricitabine/Tenofovir [Truvada -] 1 tab PO DAILY #30 mg 12/20/16 Citalopram Hydrobromide [Celexa -] 10 mg PO DAILY #30 tablet 03/28/17 Quetiapine Fumarate [Seroquel] 100 mg PO HS #30 tablet 03/28/17 Aspirin [ASA -] 81 mg PO DAILY tab.chew 03/31/17 Ranitidine [Zantac -] 150 mg PO BID tablet 03/31/17 Albuterol Sulfate Inhaler - [Ventolin HFA Inhaler -] 2 inh PO Q4H PRN #1 inhaler 12/03/17 Atenolol [Tenormin -] 50 mg PO DAILY #30 mg 12/03/17 Lisinopril [Prinivil -] 40 mg PO DAILY #30 mg 12/03/17 Nifedipine ER [Procardia XL -] 90 mg PO DAILY #30 mg 12/03/17 Ritonavir [Norvir -] 100 mg PO DAILY #30 mg 12/03/17 - Diagnosis (1) Alcohol dependence with uncomplicated withdrawal Current Visit: Yes Status: Acute (2) HIV disease Current Visit: Yes Status: Chronic (3) HTN (hypertension) Current Visit: Yes Status: Chronic Qualifiers: Hypertension type: essential hypertension (4) Nicotine dependence Current Visit: Yes Status: Chronic Qualifiers: Nicotine product type: cigarettes Substance use status: in withdrawal Qualified Code(s): F17.213 - Nicotine dependence, cigarettes, with withdrawal (5) Weight loss Current Visit: Yes Status: Acute (6) Asthma Current Visit: Yes Status: Chronic Qualifiers: Asthma severity: mild Asthma persistence: intermittent Asthma complication type: uncomplicated Qualified Code(s): J45.20 - Mild intermittent asthma, uncomplicated (7) GERD (gastroesophageal reflux disease) Current Visit: Yes Status: Chronic Qualifiers: Esophagitis presence: without esophagitis - AMA Did Patient Leave Against Medical Advice: No
[2017-12-03] MEDS: ASPIRIN 81 MG CHEWABLE TABLETS PO SCH (09:39)
[2017-12-03] MEDS: DARUNAVIR ETHANOLATE 800 MG TAB PO SCH (09:39)
[2017-12-03] MEDS: NIFEdipine E.R. 90 MG TABLET (FP) PO SCH (09:39)
[2017-12-03] MEDS: PRENATAL VITAMINS W/ FOLIC ACID TABLET (FP) PO SCH (09:39)
[2017-12-03] MEDS: RITONAVIR 100 MG TABLET PO SCH (09:40)
[2017-12-03] MEDS: EMTRICITABINE 200MG/TENOFOVIR 300MG PO SCH (09:41)
[2017-12-03] MEDS: ATENOLOL 50 MG TABLET (FP) PO SCH (09:42)
[2017-12-03 09:56] VITALS: BP 137/77; PULSE 83; TEMP 96.3
[2017-12-03] MEDS ORDERED: chlordiazePOXIDE HCL 10 MG CAPSULE PO SCH (17:00)
== END 2017-12-03 10:32 | disposition home or self-care (01) | DRG 774 ==
LOC: YASAS 10:36 → Y6N 12:05
PROVIDERS: ADMIT Surgery; ATTEND Surgery
PROC: HZ2ZZZZ Detoxification Services for Substance Abuse Treatment (ICD-10-PCS; principal; 2017-11-30)
DX: F10.230 Alcohol dependence with withdrawal, uncomplicated (principal); F14.20 Cocaine dependence, uncomplicated; F17.213 Nicotine dependence, cigarettes, with withdrawal; Z21 Asymptomatic human immunodeficiency virus [HIV] infection status; I10 Essential (primary) hypertension; I25.2 Old myocardial infarction; J45.20 Mild intermittent asthma, uncomplicated; K21.9 Gastro-esophageal reflux disease without esophagitis; Z86.73 Personal history of transient ischemic attack (TIA), and cerebral infarction without residual deficits; Z87.898 Personal history of other specified conditions
CPT/HCPCS: 36415; 80053; 81003; 85027; 86593; 93005; 93010

== ENCOUNTER 2019-01-15 12:37 | Inpatient (IN) | payer OTHER | END 2019-01-19 12:31 | disposition home or self-care (01) | LOC: YASAS 12:37 → Y6N 16:36 ==

== ENCOUNTER 2019-07-20 12:16 | Inpatient (IN) | payer OTHER ==
--- NOTE | 2019-07-20 13:27 | HP ---
<Clinton Parham - Last Filed: 07/20/19 14:21> CIWA Score Nausea/Vomitin-No Nausea/No Vomiting Muscle Tremors: None Anxiety: 0-No Anxiety, at Ease Agitation: 0-Normal Activity Paroxysmal Sweats: No Perspiration Orientation: 0-Oriented Tacttile Disturbances: 0-None Auditory Disturbances: 0-None Visual Disturbances: 0-None Headache: 0-None Present CIWA-Ar Total Score: 0 - Admission Criteria OASAS Guidelines: Admission for Medically Managed Detox: Requires at least one of the followin. CIWA greater than 12 2. Seizures within the past 24 hours 3. Delirium tremens within the past 24 hours 4. Hallucinations within the past 24 hours 5. Acute intervention needed for co occurring medical disorder 6. Acute intervention needed for co occurring psychiatric disorder 7. Severe withdrawal that cannot be handled at a lower level of care (continued vomiting, continued diarrhea, abnormal vital signs) requiring intravenous medication and/or fluids 8. Admitting History and Physical - Admission Chief Complaint: Seeking detox/rehab History of Present Illness: States she is tired of drinking and using. Would like to pursue detox and rehab for alcohol and cocaine use. Has done detox/rehab numerous times. Has had some temporary success. Most recent rehab was at this facility in December. Has never completed rehab. EtOH: 1.5 pints vodka, 6 beers daily since age 25. Last drink today. No agitation/shakes. Has never gone for more than a week without drinking since age 25. Has never withdrawn from alcohol Crack cocaine: daily use since age 27. Last use yesterday. Has also never gone for prolonged period without using. Marijuana: 2 blunts daily since age 26. Last use Thurs or Fri. Never gone without use. Smokes 2 ppd since mid-20s. Denies heroin/opiates. Presently denies sweaty, agitated, visual change, tingling, hallucination, trembling, headache Describes unintentional weight loss. Normally weighs 140lbs. Now 110lbs. Describes subjective fevers, night sweats, chills, dry cough and runny nose X few days/ 1 week. Has been inconsistent with HIV medication. States she does not know her viral load and CD4 count but that Jun was "a bad month". PMH: HIV, HTN, Asthma PSH: none Psychiatric: Depression Medications: unsure what and how much, but does take medications All: none Soc: Lives in long-term, sexually active, uses condoms consistently History Source: Patient Limitations to Obtaining History: No Limitations - Past Medical History Cardiovascular: Yes: HTN Pulmonary: Yes: Asthma ...LMP: 03/27/10 ...: No ...: 5 ...Para: 3 Infectious Disease: Yes: HIV Psych: Yes: Depression - Smoking History Smoking history: Current every day smoker Have you smoked in the past 12 months: Yes Aproximately how many cigarettes per day: 10 - Alcohol/Substance Use Hx Alcohol Use: Yes History of Substance Use: reports: Cocaine, Marijuana. denies: Heroin - Social History Usual Living Arrangement: Yes: Alone Admission [facility] Allergies/Adverse Reactions: Allergies Allergy/AdvReac Type Severity Reaction Status Date / Time No Known Allergies Allergy Verified 07/20/19 13:57 Exam Limitations: No Limitations - Ebola screening Have you traveled outside of the country in the last 21 days: No Have you had contact with anyone from an Ebola affected area: No Do you have a fever: No - Review of Systems Constitutional: Fever (subjective), Malaise, Night Sweats, Unintentional Wgt. Loss (unintentional 30lb weight loss over 1-2 months) EENT: denies: Blurred Vision, Double Vision Respiratory: reports: Cough, Wheezing. denies: Shortness of Breath, Productive cough Cardiac: denies: Chest Pain GI: denies: Abdominal Distended, Nausea, Rectal Bleeding, Vomiting, Abdominal cramping : denies: Burning, Dysuria, Discharge Integumentary: reports: Sweating. denies: Rash Neuro: denies: Headache, Numbness, Paresthesia Endocrine: reports: Unexplained Weight Loss. denies: Excessive Sweating Hematology: reports: No Symptoms Reported. denies: Anemia, Easy Bruising Psychiatric: reports: No Sypmtoms Reported, Orientated x3 Patient History - Patient Medical History Hx Anemia: No Hx Asthma: Yes (on inhaler) Hx Chronic Obstructive Pulmonary Disease (COPD): No Hx Cancer: No Hx Cardiac Disorders: No Hx Congestive Heart Failure: No Hx Hypertension: Yes (ON MEDICATION) Hx Hypercholesterolemia: No Hx Pacemaker: No HX Cerebrovascular Accident: Yes (old cva in 2014) Hx Seizures: No Hx Dementia: No Hx Diabetes: No Hx Gastrointestinal Disorders: No Hx Liver Disease: No Hx Genitourinary Disorders: No Hx Sexually Transmitted Disorders: No Hx Renal Disease (ESRD): No Hx Thyroid Disease: No Hx Human Immunodeficiency Virus (HIV): Yes (diagnosed 1997,NON COMPLAINT WITH MEDS, SHINGLES IN 2013) Hx Hepatitis C: No Hx Depression: Yes (denies ever being hospitalized) Hx Suicide Attempt: Yes (history - none for years) Hx Bipolar Disorder: No Hx Schizophrenia: No - Patient Surgical History Past Surgical History: Yes Hx Neurologic Surgery: No Hx Cataract Extraction: No Hx Cardiac Surgery: No Hx Lung Surgery: No Hx Breast Surgery: Yes (Cyst removal on right breast 1979) Hx Breast Biopsy: No Hx Abdominal Surgery: No Hx Appendectomy: No Hx Cholecystectomy: No Hx Genitourinary Surgery: No Hx Section: No Hx Orthopedic Surgery: No Hx Hysterectomy: No Anesthesia Reaction: No - PPD History Date: 12/12/16 Results: NEGATIVE - Reproductive History Last Menstrual Period: 03/27/10 - Smoking Cessation Smoking history: Current every day smoker Have you smoked in the past 12 months: Yes Aproximately how many cigarettes per day: 10 Cigars Per Day: 0 Hx Chewing Tobacco Use: No Initiated information on smoking cessation: Yes 'Breaking Loose' booklet given: 07/20/19 - Substances abused Alcohol Substance route: Oral Frequency: Daily Amount used: fifth of vodka Age of first use: 25 Date of last use: 07/20/19 Cocaine Substance route: Smoking Frequency: Daily Amount used: $200 Age of first use: 27 Date of last use: 07/19/19 Marijuana/Hashish Substance route: Smoking Frequency: 1-2 times per week Amount used: 2 blunts Age of first use: 26 Date of last use: 07/19/19 Admission Physical Exam [facility] - Physical General Appearance: Yes: Thin, Other (mildly somnolent) HEENTM: Yes: Within Normal Limits, EOMI, Hearing grossly Normal, Normal ENT Inspection, Normocephalic, Normal Voice, CAROLA, Pharynx Normal Respiratory: Yes: Within Normal Limits, Lungs Clear, Normal Breath Sounds Neck: Yes: Within Normal Limits, No masses,lesions,Nodules Cardiology: Yes: Within Normal Limits, Regular Rhythm, Regular Rate. No: Systolic Murmur, Gallop/S3, Gallop/S4 Abdominal: Yes: Within Normal Limits, Normal Bowel Sounds, Non Tender, Flat, Soft Genitourinary: Yes: Within Normal Limits Back: Yes: Normal Inspection Musculoskeletal: Yes: Within Normal Limits, full range of Motion Extremities: Yes: Within Normal Limits, Normal Inspection, Normal Range of Motion, Non-Tender. No: Pedal Edema Neurological: Yes: Within Normal Limits, radiology administrator II-XII NML intact, Fully Oriented, Alert, Motor Strength 5/5 Integumentary: Yes: Within Normal Limits, Normal Color, Dry, Warm Screened but not Admitted - Documentation of Visit Screened but not Admitted: No Breathalyzer - Breathalyzer Breathalyzer: 0 Urine Drug Screen - Test Device Lot number: [id number] Expiration date: 01/21/21 - Control Is test valid?: Yes - Results Drug screen NEGATIVE: No Urine drug screen results: THC-Marijuana, ANTONIO-Cocaine Inpatient Rehab Admission - Rehab Decision to Admit Inpatient rehab admission?: No - Initial Determination Are CD services needed?: Yes Free of communicable disease: No Not in need of hospitalization: Yes - Rehab Admission Criteria Previous failed treatment: Yes Poor recovery environment: Yes Comorbidities: Yes Lacks judgement: Yes Patient is meeting Inpatient Rehab admission criteria:: Yes <Sara Reeves - Last Filed: 07/21/19 11:24> CIWA Score Nausea/Vomitin-Mild Nausea/No Vomiting Muscle Tremors: 4-Moderate,w/Arms Extend Anxiety: 1-Mildly Anxious Agitation: 1-Slight > Activity Paroxysmal Sweats: 1-Minimal Palms Moist Orientation: 1-Uncertain about Date Tacttile Disturbances: 1-Very Mild Itch/Numbness Auditory Disturbances: 0-None Visual Disturbances: 1-Very Mild Sensitivity Headache: 1-Very Mild CIWA-Ar Total Score: 12 - Admission Criteria OASAS Guidelines: Admission for Medically Managed Detox: Requires at least one of the followin. CIWA greater than 12 2. Seizures within the past 24 hours 3. Delirium tremens within the past 24 hours 4. Hallucinations within the past 24 hours 5. Acute intervention needed for co occurring medical disorder 6. Acute intervention needed for co occurring psychiatric disorder 7. Severe withdrawal that cannot be handled at a lower level of care (continued vomiting, continued diarrhea, abnormal vital signs) requiring intravenous medication and/or fluids 8. Admission Physical Exam [facility] - Vital Signs Vital Signs: Vital Signs - 24 hr 07/20/19 07/20/19 07/20/19 14:01 17:16 21:19 Temperature 97.3 F L 97.8 F 98.2 F Pulse Rate 88 105 H 95 H Respiratory 18 18 18 Rate Blood Pressure 155/99 147/80 152/89 07/21/19 07/21/19 07/21/19 00:30 03:30 07:25 Temperature 97.7 F Pulse Rate 81 Respiratory 16 16 18 Rate Blood Pressure 146/85 07/21/19 09:06 Temperature 97.1 F L Pulse Rate 75 Respiratory 18 Rate Blood Pressure 148/88
[2019-07-20 14:04] VITALS: BMI 21.1
[2019-07-20] MEDS ORDERED: hydrOXYzine PAMOATE 25 MG CAPSULE (FP) PO PRN (14:18)
[2019-07-20] MEDS ORDERED: MAGNESIUM HYDROX 2400MG/30ML ORAL SUSPENSION 30 ML CUP PO PRN (14:18)
[2019-07-20] MEDS ORDERED: MENTHOL/PHENOL 1 EACH UD MM PRN (14:18)
[2019-07-20] MEDS ORDERED: METHOCARBAMOL 500 MG TABLET PO PRN (14:18)
[2019-07-20] MEDS ORDERED: IBUPROFEN 400 MG TABLET (FP) PO PRN (14:18)
[2019-07-20] MEDS ORDERED: MAG HYDROX/AL HYDROX/SIMETH 30 ML UNIT-DOSE CUP PO PRN (14:18)
[2019-07-20] MEDS ORDERED: MAGNESIUM CITRATE 300 ML BOTTLE PO PRN (14:18)
[2019-07-20] MEDS ORDERED: ACETAMINOPHEN 325 MG TABLET (FP) PO PRN ×2 (14:18)
[2019-07-20] MEDS ORDERED: chlordiazePOXIDE HCL 25 MG CAPSULE PO PRN (14:18)
[2019-07-20 16:57] LABS: HEMATOCRIT 39.1 % (32.4-45.2); HEMOGLOBIN 12.8 GM/dL (10.7-15.3); MCH 28.2 pg (25.7-33.7); MCHC 32.8 g/dl (32.0-36.0); MEAN CELL VOLUME 86.2 fl (80-96); MEAN PLT VOLUME 9.4 fl (7.5-11.1); PLATELET COUNT 266 K/MM3 (134-434); RBC 4.53 M/mm3 (3.60-5.2); RDW 14.4 % (11.6-15.6); WHITE BLOOD COUNT 6.2 K/mm3 (4.0-10.0)
[2019-07-20 17:12] LABS: ALBUMIN 3.4 g/dl (3.4-5.0); BILIRUBIN,TOTAL 0.3 mg/dL (0.2-1); BLOOD UREA NITROGEN 23.9 mg/dL (7-18); CALCIUM 9.5 mg/dL (8.5-10.1); CREATININE 1.4 mg/dL (0.55-1.3); POTASSIUM 3.6 mmol/L (3.5-5.1); TOT PROT 9.5 g/dl (6.4-8.2)
[2019-07-20] MEDS: chlordiazePOXIDE HCL 25 MG CAPSULE PO SCH ×2 (17:47→22:07)
[2019-07-20] MEDS: THIAMINE HCL 100 MG TABLET (FP) PO SCH (22:07)
[2019-07-21] MEDS: chlordiazePOXIDE HCL 25 MG CAPSULE PO SCH ×4 (05:35→22:05)
[2019-07-21] MEDS: PRENATAL VITAMINS W/ FOLIC ACID TABLET (FP) PO SCH (10:34)
--- NOTE | 2019-07-21 11:25 | PN ---
Teaching Attending Note Name of Resident: Clinton Parham ATTENDING PHYSICIAN STATEMENT I saw and evaluated the patient. I reviewed the resident's note and discussed the case with the resident. I agree with the resident's findings and plan as documented. SUBJECTIVE: OBJECTIVE: ASSESSMENT AND PLAN: Agree with plan for detox from alcohol
--- NOTE | 2019-07-21 11:51 | PN ---
[facility] CIWA - CIWA Score Nausea/Vomitin-Mild Nausea/No Vomiting (after breakfast) Muscle Tremors: 4-Moderate,w/Arms Extend Anxiety: 3 Agitation: 0-Normal Activity Paroxysmal Sweats: 2 Orientation: 1-Uncertain about Date (date of week) Tacttile Disturbances: 0-None Auditory Disturbances: 0-None Visual Disturbances: 0-None Headache: 1-Very Mild CIWA-Ar Total Score: 12 [facility] Progress Note (SOAP) Subjective: 59 years old female admitted on 07/20/19 for alcohol withdrawal sx management treating with librium detox regiment feeling tired tremor sweating anxiety trouble sleep at night bp elevation publications writer called [phone] verified [facility] of Biktarvy hctz lisinopril nefedipine wellbutrin and seroquel medication reconciliation completed case discussed with the pharmacist that biktarvy is available Objective: 07/21/19 12:11 Vital Signs Temperature 97.1 F L 07/21/19 09:06 Pulse Rate 75 07/21/19 09:06 Respiratory Rate 18 07/21/19 09:06 Blood Pressure 148/88 07/21/19 09:06 O2 Sat by Pulse Oximetry (%) Laboratory Last Values WBC 6.2 K/mm3 (4.0-10.0) 07/20/19 15:00 RBC 4.53 M/mm3 (3.60-5.2) 07/20/19 15:00 Hgb 12.8 GM/dL (10.7-15.3) 07/20/19 15:00 Hct 39.1 % (32.4-45.2) 07/20/19 15:00 MCV 86.2 fl (80-96) 07/20/19 15:00 MCH 28.2 pg (25.7-33.7) 07/20/19 15:00 MCHC 32.8 g/dl (32.0-36.0) 07/20/19 15:00 RDW 14.4 % (11.6-15.6) 07/20/19 15:00 Plt Count 266 K/MM3 (134-434) D 07/20/19 15:00 MPV 9.4 fl (7.5-11.1) 07/20/19 15:00 Sodium 142 mmol/L (136-145) 07/20/19 15:00 Potassium 3.6 mmol/L (3.5-5.1) 07/20/19 15:00 Chloride 109 mmol/L (98-107) H 07/20/19 15:00 Carbon Dioxide 27 mmol/L (21-32) 07/20/19 15:00 Anion Gap 6 MMOL/L (8-16) L 07/20/19 15:00 BUN 23.9 mg/dL (7-18) H 07/20/19 15:00 Creatinine 1.4 mg/dL (0.55-1.3) H 07/20/19 15:00 Est GFR (CKD-EPI)AfAm 47.88 07/20/19 15:00 Est GFR (CKD-EPI)NonAf 41.31 07/20/19 15:00 Random Glucose 76 mg/dL (74-106) 07/20/19 15:00 Calcium 9.5 mg/dL (8.5-10.1) 07/20/19 15:00 Total Bilirubin 0.3 mg/dL (0.2-1) 07/20/19 15:00 AST 15 U/L (15-37) 07/20/19 15:00 ALT 16 U/L (13-61) 07/20/19 15:00 Alkaline Phosphatase 83 U/L (45-117) 07/20/19 15:00 Total Protein 9.5 g/dl (6.4-8.2) H 07/20/19 15:00 Albumin 3.4 g/dl (3.4-5.0) 07/20/19 15:00 RPR Titer Nonreactive (NONREACTIVE) 07/20/19 15:00 lab noted Assessment: 07/21/19 12:11 alcohol withdrawal hypertension Hiv mood disorder Plan: librium regiment seroquel 200 mg po daily wellbutrin 150mg xl po daily hctz 25 mg po daily nifedipine 90 mg po daily lisinopril 20 mg po daily
[2019-07-21] MEDS ORDERED: ALBUTEROL SO4 8 GM HFA INHALER IH PRN (11:57)
[2019-07-21] MEDS ORDERED: NIFEdipine E.R. 90 MG TABLET PO SCH (12:00)
[2019-07-21] MEDS: NIFEdipine E.R. 90 MG TABLET PO SCH (13:56)
[2019-07-21] MEDS: ASPIRIN 81 MG CHEWABLE TABLETS PO SCH (13:56)
[2019-07-21] MEDS: THIAMINE HCL 100 MG TABLET (FP) PO SCH (22:05)
[2019-07-22] MEDS: chlordiazePOXIDE HCL 25 MG CAPSULE PO SCH ×4 (06:09→22:11)
[2019-07-22] MEDS: PRENATAL VITAMINS W/ FOLIC ACID TABLET (FP) PO SCH (10:21)
[2019-07-22] MEDS: ASPIRIN 81 MG CHEWABLE TABLETS PO SCH (10:21)
[2019-07-22] MEDS: NIFEdipine E.R. 90 MG TABLET PO SCH (10:21)
--- NOTE | 2019-07-22 12:22 | PN ---
[facility] CIWA - CIWA Score Nausea/Vomitin-Mild Nausea/No Vomiting Muscle Tremors: 2 Anxiety: 3 Agitation: 1-Slight > Activity Paroxysmal Sweats: 2 Orientation: 0-Oriented Tacttile Disturbances: 0-None Auditory Disturbances: 0-None Visual Disturbances: 0-None Headache: 0-None Present CIWA-Ar Total Score: 9 [facility] Progress Note (SOAP) Subjective: 59 years old female admitted on 07/21/19 for alcohol withdrawal sx management treating with librium detox regiment bp elevation resume lisinopril and hctz and arc less tremor with anxiety Objective: 07/22/19 12:23 Vital Signs Temperature 98.5 F 07/22/19 08:42 Pulse Rate 97 H 07/22/19 08:42 Respiratory Rate 16 07/22/19 08:42 Blood Pressure 149/85 07/22/19 08:42 O2 Sat by Pulse Oximetry (%) Laboratory Last Values WBC 6.2 K/mm3 (4.0-10.0) 07/20/19 15:00 RBC 4.53 M/mm3 (3.60-5.2) 07/20/19 15:00 Hgb 12.8 GM/dL (10.7-15.3) 07/20/19 15:00 Hct 39.1 % (32.4-45.2) 07/20/19 15:00 MCV 86.2 fl (80-96) 07/20/19 15:00 MCH 28.2 pg (25.7-33.7) 07/20/19 15:00 MCHC 32.8 g/dl (32.0-36.0) 07/20/19 15:00 RDW 14.4 % (11.6-15.6) 07/20/19 15:00 Plt Count 266 K/MM3 (134-434) D 07/20/19 15:00 MPV 9.4 fl (7.5-11.1) 07/20/19 15:00 Sodium 142 mmol/L (136-145) 07/20/19 15:00 Potassium 3.6 mmol/L (3.5-5.1) 07/20/19 15:00 Chloride 109 mmol/L (98-107) H 07/20/19 15:00 Carbon Dioxide 27 mmol/L (21-32) 07/20/19 15:00 Anion Gap 6 MMOL/L (8-16) L 07/20/19 15:00 BUN 23.9 mg/dL (7-18) H 07/20/19 15:00 Creatinine 1.4 mg/dL (0.55-1.3) H 07/20/19 15:00 Est GFR (CKD-EPI)AfAm 47.88 07/20/19 15:00 Est GFR (CKD-EPI)NonAf 41.31 07/20/19 15:00 Random Glucose 76 mg/dL (74-106) 07/20/19 15:00 Calcium 9.5 mg/dL (8.5-10.1) 07/20/19 15:00 Total Bilirubin 0.3 mg/dL (0.2-1) 07/20/19 15:00 AST 15 U/L (15-37) 07/20/19 15:00 ALT 16 U/L (13-61) 07/20/19 15:00 Alkaline Phosphatase 83 U/L (45-117) 07/20/19 15:00 Total Protein 9.5 g/dl (6.4-8.2) H 07/20/19 15:00 Albumin 3.4 g/dl (3.4-5.0) 07/20/19 15:00 RPR Titer Nonreactive (NONREACTIVE) 07/20/19 15:00 HIV-1 Antibody Positive (Negative) H 07/20/19 15:00 HIV Ag/Ab Interpret Hiv-1 positive (.) 07/20/19 15:00 HIV-2 Antibody Negative (Negative) 07/20/19 15:00 HIV 1&2 Ag/Ab, 4th Gen Reactive (Non Reactive) H 07/20/19 15:00 lab noted hiv positive Assessment: 07/22/19 12:24 alcohol withdrawal Plan: libirum regiment
[2019-07-22] MEDS: HYDROCHLOROTHIAZIDE 25 MG TABLET (FP) PO SCH (14:25)
[2019-07-22] MEDS: BICTEGRAV/EMTRICIT/TENOFOV (BIKTARVY) 50-200-25 MG TABLET PO SCH (14:25)
[2019-07-22] MEDS: LISINOPRIL 20 MG TABLET (FP) PO SCH (22:10)
[2019-07-22] MEDS: THIAMINE HCL 100 MG TABLET (FP) PO SCH (22:10)
[2019-07-22] MEDS: MELATONIN 5 MG TABLETS PO PRN (22:12)
[2019-07-23] MEDS ORDERED: chlordiazePOXIDE HCL 10 MG CAPSULE PO PRN
[2019-07-23] MEDS: chlordiazePOXIDE HCL 10 MG CAPSULE PO SCH ×4 (06:11→22:09)
[2019-07-23] MEDS: ASPIRIN 81 MG CHEWABLE TABLETS PO SCH (10:21)
[2019-07-23] MEDS: HYDROCHLOROTHIAZIDE 25 MG TABLET (FP) PO SCH (10:21)
[2019-07-23] MEDS: BICTEGRAV/EMTRICIT/TENOFOV (BIKTARVY) 50-200-25 MG TABLET PO SCH (10:21)
[2019-07-23] MEDS: NIFEdipine E.R. 90 MG TABLET PO SCH (10:21)
[2019-07-23] MEDS: LISINOPRIL 20 MG TABLET (FP) PO SCH (10:21)
[2019-07-23] MEDS: PRENATAL VITAMINS W/ FOLIC ACID TABLET (FP) PO SCH (10:21)
--- NOTE | 2019-07-23 10:24 | PN ---
[facility] CIWA - CIWA Score Nausea/Vomitin-No Nausea/No Vomiting Muscle Tremors: 2 Anxiety: 2 Agitation: 2 Paroxysmal Sweats: No Perspiration Orientation: 0-Oriented Tacttile Disturbances: 0-None Auditory Disturbances: 0-None Visual Disturbances: 0-None Headache: 1-Very Mild CIWA-Ar Total Score: 7 [facility] Progress Note (SOAP) Subjective: 59 years old female admitted on 07/21/19 for alcohol withdrawal sx management treating with librium detox regiment doing ok today ate breakfast in day room social with peers in day room less tremor mild anxiety Objective: 07/23/19 10:24 Vital Signs Temperature 98.0 F 07/23/19 08:37 Pulse Rate 92 H 07/23/19 08:37 Respiratory Rate 20 07/23/19 08:37 Blood Pressure 131/74 07/23/19 08:37 O2 Sat by Pulse Oximetry (%) Laboratory Last Values WBC 6.2 K/mm3 (4.0-10.0) 07/20/19 15:00 RBC 4.53 M/mm3 (3.60-5.2) 07/20/19 15:00 Hgb 12.8 GM/dL (10.7-15.3) 07/20/19 15:00 Hct 39.1 % (32.4-45.2) 07/20/19 15:00 MCV 86.2 fl (80-96) 07/20/19 15:00 MCH 28.2 pg (25.7-33.7) 07/20/19 15:00 MCHC 32.8 g/dl (32.0-36.0) 07/20/19 15:00 RDW 14.4 % (11.6-15.6) 07/20/19 15:00 Plt Count 266 K/MM3 (134-434) D 07/20/19 15:00 MPV 9.4 fl (7.5-11.1) 07/20/19 15:00 Sodium 142 mmol/L (136-145) 07/20/19 15:00 Potassium 3.6 mmol/L (3.5-5.1) 07/20/19 15:00 Chloride 109 mmol/L (98-107) H 07/20/19 15:00 Carbon Dioxide 27 mmol/L (21-32) 07/20/19 15:00 Anion Gap 6 MMOL/L (8-16) L 07/20/19 15:00 BUN 23.9 mg/dL (7-18) H 07/20/19 15:00 Creatinine 1.4 mg/dL (0.55-1.3) H 07/20/19 15:00 Est GFR (CKD-EPI)AfAm 47.88 07/20/19 15:00 Est GFR (CKD-EPI)NonAf 41.31 07/20/19 15:00 Random Glucose 76 mg/dL (74-106) 07/20/19 15:00 Calcium 9.5 mg/dL (8.5-10.1) 07/20/19 15:00 Total Bilirubin 0.3 mg/dL (0.2-1) 07/20/19 15:00 AST 15 U/L (15-37) 07/20/19 15:00 ALT 16 U/L (13-61) 07/20/19 15:00 Alkaline Phosphatase 83 U/L (45-117) 07/20/19 15:00 Total Protein 9.5 g/dl (6.4-8.2) H 07/20/19 15:00 Albumin 3.4 g/dl (3.4-5.0) 07/20/19 15:00 RPR Titer Nonreactive (NONREACTIVE) 07/20/19 15:00 HIV-1 Antibody Positive (Negative) H 07/20/19 15:00 HIV Ag/Ab Interpret Hiv-1 positive (.) 07/20/19 15:00 HIV-2 Antibody Negative (Negative) 07/20/19 15:00 HIV 1&2 Ag/Ab, 4th Gen Reactive (Non Reactive) H 07/20/19 15:00 lab noted patient has hiv taking biktarvey Assessment: 07/23/19 10:31 alcohol withdrawal Plan: librium regiment
[2019-07-23] MEDS: BISMUTH SUBSALICYLATE 262 MG/15 ML BTL PO PRN (18:04)
[2019-07-23] MEDS: THIAMINE HCL 100 MG TABLET (FP) PO SCH (22:09)
[2019-07-23] MEDS: MELATONIN 5 MG TABLETS PO PRN (22:10)
[2019-07-24] MEDS ORDERED: chlordiazePOXIDE HCL 10 MG CAPSULE PO SCH (05:00)
[2019-07-24] MEDS: BISMUTH SUBSALICYLATE 262 MG/15 ML BTL PO PRN (05:37)
[2019-07-24 09:42] VITALS: BP 138/83; PULSE 86; TEMP 96.5
--- NOTE | 2019-07-24 10:01 | DS ---
[facility] Detox Discharge Summary Admission Date: 07/20/19 Discharge Date: 07/24/19 - History Present History: Alcohol Dependence, Cannabis Dependence, Cocaine Dependence Pertinent Past History: 59 year old female with alcohol dependence, cocaine use disorder, marijuana use disorder who was admitted to detox with intention of completion of detox and then continuation to rehab. She states that she has a family issue that she had an appointment that she had to keep. She had done detox/rehab numerous times. Has had some temporary success. Most recent rehab was at this facility in December. Has never completed rehab. EtOH: 1.5 pints vodka, 6 beers daily since age 25. Last drink today. No agitation/shakes. Has never gone for more than a week without drinking since age 25. Has never withdrawn from alcohol Crack cocaine: daily use since age 27. Last use yesterday. Has also never gone for prolonged period without using. Marijuana: 2 blunts daily since age 26. Last use Thurs or Fri. Never gone without use. Smokes 2 ppd since mid-20s. Denies heroin/opiates. PMH: HIV, HTN, Asthma PSH: none Psychiatric: Depression Medications: unsure what and how much, but does take medications All: none Soc: Lives in senior care, sexually active, uses condoms consistently - Physical Exam Results Vital Signs: Vital Signs Temperature 96.5 F L 07/24/19 09:41 Pulse Rate 86 07/24/19 09:41 Respiratory Rate 18 07/24/19 09:41 Blood Pressure 138/83 07/24/19 09:41 O2 Sat by Pulse Oximetry (%) Pertinent Admission Physical Exam Findings: However, this patient has been discharged due to not wanting to wait for the provider. However, as per nursing, she was alert, oriented x3 and in full capacity to make her decision. Discharge planning was done on this patient and a referral post discharge was made but she did not wait for those referral papers to be given to her. However, this food writer was able to contact her sister ( ) who has regular contact with her and spoke to her just after her leaving [facility] earlier today. Therefore, this will not be an AMA discharge as the patient was stable medically and she will be informed of her discharge plans and she can call to [facility] to speak to the counselor who did the discharge plan for her. She will relay the message to Renetta that she had discharge planning and a referral to [facility] was done. Dr. Stover - Treatment Hospital Course: Detox Protocol Followed, Detoxed Safely, Discharged Condition Good - Medication Discharge Medications: Ambulatory Orders Aspirin [ASA -] 81 mg PO DAILY tab.chew 03/31/17 Albuterol Sulfate Inhaler - [Ventolin HFA Inhaler -] 2 inh PO Q4H PRN #1 inhaler 12/03/17 Nifedipine ER [Procardia XL -] 90 mg PO DAILY #30 mg 12/03/17 Quetiapine Fumarate [Seroquel -] 200 mg PO HS 07/20/19 Bictegrav/Emtricit/Tenofov Ala [Biktarvy 50-200-25 mg Tablet] 1 each PO DAILY Hydrochlorothiazide [Hctz -] 25 mg PO DAILY 07/21/19 Lisinopril [Prinivil] 20 mg PO DAILY 07/21/19 - Diagnosis (1) Alcohol dependence with uncomplicated withdrawal Status: Chronic (2) Asthma Status: Chronic Qualifiers: Asthma severity: mild Asthma persistence: intermittent Asthma complication type: uncomplicated Qualified Code(s): J45.20 - Mild intermittent asthma, uncomplicated (3) Cannabis dependence Status: Chronic (4) Cocaine dependence Status: Chronic Qualifiers: Substance use status: uncomplicated Qualified Code(s): F14.20 - Cocaine dependence, uncomplicated (5) GERD (gastroesophageal reflux disease) Status: Chronic Qualifiers: Esophagitis presence: without esophagitis Qualified Code(s): K21.9 - Gastro -esophageal reflux disease without esophagitis (6) HIV disease Status: Chronic (7) HTN (hypertension) Status: Chronic Qualifiers: Hypertension type: essential hypertension Qualified Code(s): I10 - Essential (primary) hypertension (8) Major depressive disorder, recurrent, severe with psychotic features Status: Chronic (9) Nicotine dependence Status: Chronic Qualifiers: Nicotine product type: cigarettes Substance use status: uncomplicated Qualified Code(s): F17.210 - Nicotine dependence, cigarettes, uncomplicated (10) Old CT (myocardial infarction) Status: Chronic - AMA Did Patient Leave Against Medical Advice: No
[2019-07-24] MEDS: LISINOPRIL 20 MG TABLET (FP) PO SCH (10:49)
[2019-07-24] MEDS: HYDROCHLOROTHIAZIDE 25 MG TABLET (FP) PO SCH (10:49)
[2019-07-24] MEDS: BICTEGRAV/EMTRICIT/TENOFOV (BIKTARVY) 50-200-25 MG TABLET PO SCH (10:49)
[2019-07-24] MEDS: PRENATAL VITAMINS W/ FOLIC ACID TABLET (FP) PO SCH (10:49)
[2019-07-24] MEDS: ASPIRIN 81 MG CHEWABLE TABLETS PO SCH (10:49)
[2019-07-24] MEDS: NIFEdipine E.R. 90 MG TABLET PO SCH (10:49)
[2019-07-25] MEDS ORDERED: chlordiazePOXIDE HCL 10 MG CAPSULE PO ONE (05:00)
== END 2019-07-24 09:18 | disposition home or self-care (01) | DRG 770 ==
LOC: YASAS 12:16 → Y3N 14:43
PROVIDERS: ADMIT Allergy & Immunology; ATTEND Allergy & Immunology
PROC: HZ2ZZZZ Detoxification Services for Substance Abuse Treatment (ICD-10-PCS; principal; 2019-07-20)
DX: F10.230 Alcohol dependence with withdrawal, uncomplicated (principal); F14.20 Cocaine dependence, uncomplicated; F12.20 Cannabis dependence, uncomplicated; F17.210 Nicotine dependence, cigarettes, uncomplicated; F33.3 Major depressive disorder, recurrent, severe with psychotic symptoms; Z21 Asymptomatic human immunodeficiency virus [HIV] infection status; I25.10 Atherosclerotic heart disease of native coronary artery without angina pectoris; I25.2 Old myocardial infarction; I10 Essential (primary) hypertension; J45.20 Mild intermittent asthma, uncomplicated; K21.9 Gastro-esophageal reflux disease without esophagitis; Z86.73 Personal history of transient ischemic attack (TIA), and cerebral infarction without residual deficits; Z59.0 Homelessness
CPT/HCPCS: 36415; 80053; 85027; 86593; 87389